=== PATIENT | female | born 1960 | race African-American/Black ===

== ENCOUNTER 2016-08-10 21:24 | Observation (INO) | payer SELFPAY ==
[2016-08-10] MEDS ORDERED: NS 1000 ML 1,000 ML ONE (21:44)
[2016-08-10] MEDS ORDERED: MORPHINE SULFATE INJ 2 MG ONE ×2 (21:47→22:14)
[2016-08-10] MEDS ORDERED: MORPHINE SULFATE INJ 2 MG IVP ONE ×3 (21:48→22:19)
[2016-08-10] MEDS ORDERED: ASPIRIN ONE (21:48)
[2016-08-10] MEDS ORDERED: ASPIRIN PO ONE (21:48)
--- NOTE | 2016-08-10 21:58 | DR.GENAD ---
HPI - Complaint/Symptoms Chief Complaint Doctors Comments: Patient complains of chest pain with tightness in center of her chest for the past 30 minutes. States she was cleaning her house initially then she walked to her friends house and back when the tightness in her chest begin. States the pain is 10 of 10. Patient complains of being hot but denies nausea, vomiting or SOB. States she is a patient of Dr. Perales and has not had any problems with her heart before. She denies any recent surgeries, strokes, ulcers or active bleeding. States she had marijuana about a week ago but has not had any cocaine. Chief Complaint:: CHEST TIGHTNESS/PAIN THAT JUST STARTED A FEW MINUTES AGO - Nurses notes reviewed Nurses Notes Review: Yes - Source History Provided: Patient - Mode of Arrival Mode of Arrival: Ambulatory - Timing Onset of Chief Complaint: 08/10/16 Came on: Suddenly - Duration Duration: Constant How lon Duration: Minutes - Location Location: xiphoid tightness - Severity Severity: Severe - Modifying Factors Worsens:: nothing Improves:: nothing PMH - PMH Past Medical History: Yes Past Medical History: Hypertension Past Surgical History: Yes Surgical History: Ortho Surgery - Family History History of Family Medical Conditions: Yes Family Medical History: Diabetes Mellitus, Heart Failure - Social History Do you use any recreational Drugs:: No - infectious screening In the last 2 months have you had wt loss of >10#?: NO Have you had fever, night sweats or hemotysis?: No Have you traveled outside the country in the last 6 months?: No Isolation: Standard ROS - Review of Systems Constitutional: No Symptoms Reported. negative: See HPI, Chills, Diaphoresis, Fever, Malaise, Weakness, Irritable, Fatigue, Loss of Appetite, Other Eyes: No Symptoms Reported ENTM: No Symptoms Reported Respiratoy: No Symptoms Reported. negative: See HPI, Productive Cough, Non- Productive Cough, Moist Cough, Dry Cough, Hacking Cough, Barking Cough, Brassy Cough, Orthopnea, Short of Breath, Stridor, Wheezing, Hemoptysis, Other Cardiovascular: Chest Pain. negative: No Symptoms Reported, See HPI, Edema, Palpitations, Syncope, Cyanosis, Skin Mottling, Other Gastrointestinal/Abdominal: No Symptoms Reported. negative: See HPI, Abdominal Pain, Constipation, Diarrhea, Nausea, Vomiting, Food Intolerance, Other Genitourinary: No Symptoms Reported. negative: See HPI, Discharge, Dysuria, Frequency, Hematuria, Pain, Bleeding, Other Neurological: No Symptoms Reported, Anxiety, Numbness (hands and fingers numbe) Musculoskeletal: No Symptoms Reported Integumentary: No Symptoms Reported. negative: See HPI, Change in Color, Change in Hair/Nails, Dryness, Lesions, Lumps, Rash, Itching, Wound, Bruises, Juandice, Other Hematologic/Lymphatic: No Symptoms Reported Endocrine: No Symptoms Reported Psychiatric: No Symptoms Reported, Anxiety PE - Vital Signs Vitals: Temperature 97.5 F Pulse Rate [Apical] 83 Pulse Rate 91 Respiratory Rate 22 Blood Pressure [Right Arm] 161/78 Blood Pressure 104/55 O2 Sat by Pulse Oximetry 100 - General Limitations: No Limitations General Appearance: Alert, In Distress (moderate) - Head Head Exam: Normal Inspection, Atraumatic, Normocephalic - Eyes Eye exam: Normal Appearance, PERRL, EOMI. negative: Scleral Icterus, Conjunctival Injection, Nystagmus, Miosis, Mydrasis, Periorbital Swelling, Periorbital Tenderness, Other - ENT ENT Exam: Normal Exam, Normal Oropharynx, Normal External Ear Exam, Mucous Membranes Moist, TM's Normal Bilaterally External Ear Exam: Normal External Inspection TM/Canal Exam: Bilateral Normal Nose Exam: Normal Nose Exam Mouth Exam: Normal Inspection Throat Exam: Normal Inspection - Neck Neck Exam: Normal Inspection, Full ROM, Trachea Midline - Chest Chest Inspection: Normal Inspection, Symmetric Chest Wall Rise - Respiratory Respiratory Exam: Normal Lung Sounds Bilat Respiratory Exam: Bilateral Clear to Auscultation - Cardiovascular Cardiovascular Exam: Regular Rate, Normal Rhythm, Normal Heart Sounds, Systolic Murmur - Abdominal Exam Abdominal Exam: Normal Inspection, Normal Bowel Sounds, Soft. negative: Distention, Tenderness, Guarding, Rebound, Rigidity, Dimnished Bowel Sounds, Hyperactive Bowel Sounds, Hypoactive Bowel Sounds, Organomegaly, Trauma, Incision, Ascites, Mass, Bruit, Pulsatile Mass, Hernia, Other Abdominal Tenderness: negative: RUQ, RLQ, LUQ, LLQ, Epigastrium, Suprapubic, Diffuse, Mild, Moderate, Severe, Other - Extremities Extremities Exam: Normal Inspection, Full ROM, Normal Capillary Refill. negative: Tenderness, Edema, Joint Swelling, Calf Tenderness, Other - Back Back Exam: Normal Inspection, Full ROM - Neurologic Neurological Exam: Alert, Oriented X3, CN II-XII Intact, Reflexes Normal. negative: Normal Gait (gait not tested) - Psychiatric Psychiatric Exam: Normal Affect, Normal Mood, Agitated, Anxious. negative: Depressed, Flat Affect, Manic, Homicidal Ideation, Suicidal Ideation, Other - Skin Skin Exam: Warm, Dry, Intact, Normal Color. negative: Rash, Cyanosis, Diaphoresis, Erythema, Pallor, Mottled, Other Course - Reevaluation 1st: Improved - Consultation Called: 22:50 Call Returned: 22:50 (DR. Palmer at [facility] states EKG not consistent with acute LA; recommend serial enzymes and transfer if elevated) Consultation Comments: [id number]: [facility] Called and the valet service attendant, Dr. Palmer called and the EKG was texted to his phone and he states that the EKG is not consistent with and acute Inferior LA and he would not act on that EKG. Recommend serial cardiac enzymes and to transfer if they are elevated. - Education/Counseling Education/Counseling: Patient, Family Educated On: Treatment, Diagnosis, Prognosis, Needs for Follow Up ROR - Labs Reviewed Laboratory Results Reviewed?: Yes (all labs and x-ray results reviewed and discussed with patient) Result Diagrams: 08/10/16 21:51 08/10/16 21:51 Laboratory: WBC 11.8 X10^3/uL (3.6-10.0) H 08/10/16 21:51 RBC 4.68 X10^6/uL (3.5-5.4) 08/10/16 21:51 Hgb 12.1 g/dL (12.0-16.0) 08/10/16 21:51 Hct 37.1 % (36.0-47.0) 08/10/16 21:51 MCV 79.2 fL (80.0-100.0) L 08/10/16 21:51 MCH 25.8 pg (27.0-34.0) L 08/10/16 21:51 MCHC 32.5 g/dL (33.0-35.0) L 08/10/16 21:51 RDW 14.1 % (11.6-16.5) 08/10/16 21:51 Plt Count 303 X10^3/uL (150.0-450.0) 08/10/16 21:51 Plt Count Comment Adequate (ADEQUATE) 08/10/16 21:51 MPV 7.5 fL (7.4-11.0) 08/10/16 21:51 Neut % 39.3 % (42.0-75.0) L 08/10/16 21:51 Lymph % 52.2 % (21.0-51.0) H 08/10/16 21:51 [place] % 7.1 % (0.0-13.0) 08/10/16 21:51 Eos % 1.1 % (0.9-2.9) 08/10/16 21:51 Baso % 0.3 % (0.2-1.0) 08/10/16 21:51 Neut # 4.6 x10^3/uL (2.2-4.8) 08/10/16 21:51 Lymph # 6.1 X10^3/uL (1.3-2.9) H 08/10/16 21:51 [place] # 0.8 x10^3/uL (0.3-0.8) 08/10/16 21:51 Eos # 0.1 x10^3/uL (0.0-0.2) 08/10/16 21:51 Baso # 0.0 X10^3/uL (0.0-0.1) 08/10/16 21:51 Absolute Nucleated RBC 0.0 /100WBC 08/10/16 21:51 Plt Morphology Comment Normal (NORMAL) 08/10/16 21:51 RBC Morphology Abnormal (NORMAL) A 08/10/16 21:51 Hypochromasia Slight A 08/10/16 21:51 INR Target Range - 08/10/16 21:51 INR 1.05 (0.8-1.3) 08/10/16 21:51 PTT 22.3 SECONDS (22.9-36.5) L 08/10/16 21:51 PTT Comment - 08/10/16 21:51 D-Dimer 450 ng/mL (0-400) H* 08/10/16 21:51 Sodium 142 mmol/L (136-145) 08/10/16 21:51 Corrected Sodium 143 mmol/L (136-145) 08/10/16 21:51 Potassium 2.5 mmol/L (3.5-5.1) L* 08/10/16 21:51 Chloride 102 mmol/L (98-107) 08/10/16 21:51 Carbon Dioxide 26.5 mmol/L (21-32) 08/10/16 21:51 BUN 18 mg/dL (7-18) 08/10/16 21:51 Creatinine 1.27 mg/dL (0.55-1.02) H 08/10/16 21:51 Est GFR (MDRD) Af Amer 56 (>60) L 08/10/16 21:51 Est GFR (MDRD) Non-Af 47 (>60) L 08/10/16 21:51 Glucose 147 mg/dL (65-99) H 08/10/16 21:51 Calcium 8.7 mg/dL (8.5-10.1) 08/10/16 21:51 Corrected Calcium TNP 08/10/16 21:51 Magnesium 1.7 mg/dL (1.7-2.9) 08/10/16 21:51 Total Bilirubin 0.20 mg/dL (0.2-1.0) 08/10/16 21:51 AST 22 Units/L (15-37) 08/10/16 21:51 ALT 26 Units/L (12-78) 08/10/16 21:51 Alkaline Phosphatase 76 Units/L (46-116) 08/10/16 21:51 Creatine Kinase 168 Units/L (26-192) 08/10/16 21:51 CK-MB (CK-2) 1.0 ng/mL (0-4.0) 08/10/16 21:51 CK/CKMB % Calc 0.6 % (<4) 08/10/16 21:51 Troponin I < 0.02 ng/mL (0-1.5) 08/10/16 21:51 Total Protein 7.4 g/dL (6.4-8.2) 08/10/16 21:51 Albumin 3.4 g/dL (3.4-5.0) 08/10/16 21:51 Globulin 4.0 g/dL (2.5-4.5) 08/10/16 21:51 Albumin/Globulin Ratio 0.9 Ratio (1.1-2.1) L 08/10/16 21:51 Specimen Type Catherized urine 08/10/16 22:39 Urine Color Yellow (YELLOW) 08/10/16 22:39 Urine Appearance Clear (CLEAR) 08/10/16 22:39 Urine pH 6.0 (5.0 - 8.0) 08/10/16 22:39 Ur Specific [place] 1.015 (1.000-1.030) 08/10/16 22:39 Urine Protein 1+ (NEGATIVE) 08/10/16 22:39 Urine Glucose (UA) Negative (NEGATIVE) 08/10/16 22:39 Urine Ketones Negative (NEGATIVE) 08/10/16 22:39 Urine Occult Blood 2+ (NEGATIVE) 08/10/16 22:39 Urine Nitrite Negative (NEGATIVE) 08/10/16 22:39 Urine Bilirubin Negative (NEGATIVE) 08/10/16 22:39 Urine Urobilinogen Normal (NORMAL) 08/10/16 22:39 Ur Leukocyte Esterase Negative (NEGATIVE) 08/10/16 22:39 Urine RBC 0-3 /HPF (NEGATIVE) 08/10/16 22:39 Urine WBC 0-2 /HPF (NEGATIVE) 08/10/16 22:39 Ur Squamous Epith Cells Rare /HPF (NEGATIVE) 08/10/16 22:39 Urine Bacteria Trace /HPF (NEGATIVE) 08/10/16 22:39 Urine Mucus Few /HPF (NEGATIVE) 08/10/16 22:39 Ur Culture Indicated? No/not indicated 08/10/16 22:39 Urine Opiates Screen Positive (NEG=<300) A 08/10/16 22:34 Urine Methadone Screen Negative (NEG=<300) 08/10/16 22:34 Ur Barbiturates Screen Negative (NEG=<200) 08/10/16 22:34 Ur Phencyclidine Scrn Negative (NEG=<25) 08/10/16 22:34 Ur Amphetamines Screen Negative (NEG=<1000) 08/10/16 22:34 U Benzodiazepines Scrn Negative (NEG=<200) 08/10/16 22:34 Urine Cocaine Screen Negative (NEG=<300) 08/10/16 22:34 U Marijuana (THC) Screen Positive (NEG=<50) A 08/10/16 22:34 - XRAY XRAY Interpreted by: Radiologist (CXR: No acute cardiopulmonary disease) - Diagnosis Discharge Problem: Chest pain, rule out acute myocardial infarction, Hypokalemia, Essential hypertension, multiple drug use Chronic kidney disease Qualifiers: Chronic kidney disease stage: stage 3 (moderate) Qualified Code(s): N18.3 - Chronic kidney disease, stage 3 (moderate) - Discharge Plan Disposition: ADMITTED INPATIENT Condition: Stable - Follow ups/Referrals Follow ups/Referrals: NFD,None [Primary Care Provider] - 3 days - Instructions
[2016-08-10] MEDS ORDERED: NS 1000 ML 1,000 ML IV SCH (22:00)
[2016-08-10 22:06] LABS: BASOPHILS % (AUTO) 0.3 % (0.2-1.0); EOSINOPHILS # (AUTO) 0.1 x10^3/uL (0.0-0.2); EOSINOPHILS % (AUTO) 1.1 % (0.9-2.9); HEMATOCRIT 37.1 % (36.0-47.0); HEMOGLOBIN 12.1 g/dL (12.0-16.0); LYMPHOCYTES # (AUTO) 6.1 X10^3/uL (1.3-2.9); LYMPHOCYTES % (AUTO) 52.2 % (21.0-51.0); MEAN CORPUSCULAR HEMOGLOBIN 25.8 pg (27.0-34.0); MEAN CORPUSCULAR HGB CONC 32.5 g/dL (33.0-35.0); MEAN CORPUSCULAR VOLUME 79.2 fL (80.0-100.0); MEAN PLATELET VOLUME 7.5 fL (7.4-11.0); MONOCYTES # (AUTO) 0.8 x10^3/uL (0.3-0.8); MONOCYTES % (AUTO) 7.1 % (0.0-13.0); NEUTROPHILS # (AUTO) 4.6 x10^3/uL (2.2-4.8); NEUTROPHILS % (AUTO) 39.3 % (42.0-75.0); PLATELET COUNT 303 X10^3/uL (150.0-450.0); RED BLOOD COUNT 4.68 X10^6/uL (3.5-5.4); RED CELL DISTRIBUTION WIDTH 14.1 % (11.6-16.5); WHITE BLOOD COUNT 11.8 X10^3/uL (3.6-10.0)
[2016-08-10] MEDS ORDERED: NS 1000 ML 1,000 ML IV ONE (22:07)
[2016-08-10 22:22] LABS: HYPOCHROMASIA SLIGHT; PLATELET MORPHOLOGY COMMENT NORMAL (NORMAL)
--- NOTE | 2016-08-10 22:30 | RAD ---
Chest, one view Indication: Chest pain. Comparison: 07/04/2015 Findings: The cardiac silhouette is unremarkable. The lungs are clear, without focal infiltrates, la rge effusion, or pneumothorax. The bony thorax is unremarkable. Impression: No acute cardiopulmonary disease. Reported By:
[2016-08-10 22:33] LABS: ALANINE AMINOTRANSFERASE 26 Units/L (12-78); ALBUMIN 3.4 g/dL (3.4-5.0); ALKALINE PHOSPHATASE 76 Units/L (46-116); ASPARTATE AMINO TRANSFERASE 22 Units/L (15-37); BLOOD UREA NITROGEN 18 mg/dL (7-18); CALCIUM 8.7 mg/dL (8.5-10.1); CARBON DIOXIDE 26.5 mmol/L (21-32); CHLORIDE 102 mmol/L (98-107); CKMB % 0.6 % (<4); COR NA(FOR HYPERGLY) 143 mmol/L (136-145); CREATINE KINASE 168 Units/L (26-192); CREATININE 1.27 mg/dL (0.55-1.02); GLUCOSE 147 mg/dL (65-99); MAGNESIUM 1.7 mg/dL (1.7-2.9); SODIUM 142 mmol/L (136-145); TOTAL PROTEIN 7.4 g/dL (6.4-8.2); TROPONIN I < 0.02 ng/mL (0-1.5); eGFR BLACK RACES 56 (>60); eGFR NON BLACK RACES 47 (>60)
[2016-08-10 22:39] LABS: D DIMER 450 ng/mL (0-400)
[2016-08-10] MEDS ORDERED: K-LYTE EFFERVESCENT ONE (22:51)
[2016-08-10 22:58] LABS: BILIRUBIN,URINE NEGATIVE (NEGATIVE); BLOOD/HEMOGLOBIN,URINE 2+ (NEGATIVE); GLUCOSE, URINE NEGATIVE (NEGATIVE); KETONES,URINE NEGATIVE (NEGATIVE); LEUKOCYTE ESTERASE ,URINE NEGATIVE (NEGATIVE); NITRITES,URINE NEGATIVE (NEGATIVE); PROTEIN,URINE 1+ (NEGATIVE); UROBILINOGEN,URINE NORMAL (NORMAL)
[2016-08-10] MEDS ORDERED: K-LYTE EFFERVESCENT PO SCH (23:00)
[2016-08-10 23:08] LABS: APPEARANCE,URINE CLEAR (CLEAR); BACTERIA,URINE TRACE /HPF (NEGATIVE); COLOR,URINE YELLOW (YELLOW); RBC,URINE 0-3 /HPF (NEGATIVE); SQUAMOUS EPITHELIAL CELL,UR RARE /HPF (NEGATIVE)
[2016-08-10 23:09] LABS: MUCUS,URINE FEW /HPF (NEGATIVE)
[2016-08-10] MEDS ORDERED: ZOFRAN INJ 4 MG VIAL ONE (23:47)
[2016-08-10] MEDS ORDERED: NITRO-BID OINT 2% Multi-Dose tube ONE (23:49)
[2016-08-10] MEDS ORDERED: ZOFRAN INJ 4 MG VIAL IVP ONE (23:52)
[2016-08-10] MEDS ORDERED: NITRO-BID OINT 2% Multi-Dose tube TD ONE (23:56)
[2016-08-11] MEDS ORDERED: ATIVAN TAB 1 MG PO PRN (00:03)
[2016-08-11] MEDS ORDERED: MORPHINE SULFATE INJ 2 MG IVP PRN (00:03)
[2016-08-11] MEDS ORDERED: NITROSTAT SL PRN (00:03)
[2016-08-11 01:43] VITALS: BMI 24.3
[2016-08-11] MEDS ORDERED: ZOFRAN INJ 4 MG VIAL IVP PRN (03:21)
[2016-08-11] MEDS ORDERED: LEVSIN/MAALOX/LIDOC VISC PO PRN (03:28)
[2016-08-11 05:16] LABS: CKMB % 8.5 % (<4)
[2016-08-11 05:19] LABS: CREATINE KINASE MB 46.8 ng/mL (0-4.0); TROPONIN I 3.56 ng/mL (0-1.5)
[2016-08-11] MEDS ORDERED: HEPARIN SODIUM IN D5W 25,000 UNITS/500 ML BAG IV PRN ×2 (06:40→06:46)
[2016-08-11] MEDS ORDERED: PLAVIX PO STA (06:40)
[2016-08-11] MEDS ORDERED: NITROGLYCERIN IV PREMIX 50 MG 50 MG/250 ML BAG IV PRN ×2 (06:41→06:45)
[2016-08-11 06:43] VITALS: BP 129/80
[2016-08-11] MEDS ORDERED: HEPARIN SODIUM INJ 5000 UNITS ONE (06:59)
[2016-08-11 07:06] LABS: CHOL/HDL RATIO 4.7 (0.0-5.0)
[2016-08-11] MEDS ORDERED: HEPARIN SODIUM INJ 5000 UNITS IVP ONE (07:10)
[2016-08-11] MEDS ORDERED: PROTONIX INJ 40 MG VIAL IVP SCH (09:00)
[2016-08-11] MEDS ORDERED: LOVENOX INJ 40 MG SYR SC SCH (09:00)
[2016-08-11] MEDS ORDERED: ASPIRIN PO SCH (09:00)
[2016-08-11] MEDS ORDERED: LOPRESSOR TAB 25 MG PO SCH (09:00)
== END 2016-08-11 07:55 | disposition short-term general hospital (02) ==
LOC: ER 21:24 → ICU 08-11
PROVIDERS: ADMIT Internal Medicine; ATTEND Internal Medicine
DX: I21.4 Non-ST elevation (NSTEMI) myocardial infarction (principal); R07.89 Other chest pain; D72.828 Other elevated white blood cell count; R79.1 Abnormal coagulation profile; E87.6 Hypokalemia; F12.90 Cannabis use, unspecified, uncomplicated; F11.90 Opioid use, unspecified, uncomplicated; R94.31 Abnormal electrocardiogram [ECG] [EKG]; R94.30 Abnormal result of cardiovascular function study, unspecified; I12.9 Hypertensive chronic kidney disease with stage 1 through stage 4 chronic kidney disease, or unspecified chronic kidney disease; N18.3 Chronic kidney disease, stage 3 (moderate)
CPT/HCPCS: 36415; 51702; 71010; 80053; 80061; 80307; 81001; 82550; 82553; 83735; 84132; 84484; 85025; 85378; 85610; 85730; 93005; 93010; 96365; 96367; 96374; 96375; 99284; A4216; A4222; G0378; G0434; J1644; J2270; J2405

== ENCOUNTER 2016-10-19 17:53 | Emergency (ER) | payer SELFPAY ==
[2016-10-19] MEDS ORDERED: SOLU-Medrol 125 MG VIAL IM ONE (19:19)
[2016-10-19] MEDS ORDERED: DEMEROL INJ IM ONE (19:20)
[2016-10-19] MEDS ORDERED: PHENERGAN INJ 25 MG IM ONE (19:20)
--- NOTE | 2016-10-19 19:26 | DR.GENAD ---
HPI - Complaint/Symptoms Chief Complaint Doctors Comments: Patient complains of low back pain for the past 24 hours. 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 state she had been having severe pain in her lower back but denies numbness, tingling or weakness. States the pain is 10 of 10 and is worst when she stand, walk or bend. States she is a patient of Dr. Quintanilla. She denies headache or dizziness. - Nurses notes reviewed Nurses Notes Review: Yes - Source History Provided: Patient - Mode of Arrival Mode of Arrival: Stretcher - Timing Came on: Suddenly - Duration Duration: Constant How lon Duration: Hours - Location Location: lower back - Severity Severity: Moderate, Severe - Modifying Factors Worsens:: movement, bending Improves:: nothing PMH - PMH Past Medical History: Hypertension Past Surgical History: Yes Surgical History: Ortho Surgery - Family History Family Medical History: Diabetes Mellitus, [place], Hypertension - Social History Do you use any recreational Drugs:: No ROS - Review of Systems Constitutional: No Symptoms Reported. negative: See HPI, Chills, Diaphoresis, Fever, Malaise, Weakness, Irritable, Fatigue, Loss of Appetite, Other Eyes: No Symptoms Reported. negative: See HPI, Eye Pain, Blurred Vision, Tearing, Discharge, Photophobia, Diplopia, Other ENTM: No Symptoms Reported Respiratoy: No Symptoms Reported. negative: See HPI, Productive Cough, Non- Productive Cough, Moist Cough, Dry Cough, Hacking Cough, Barking Cough, Brassy Cough, Orthopnea, Short of Breath, Stridor, Wheezing, Hemoptysis, Other Cardiovascular: No Symptoms Reported Gastrointestinal/Abdominal: No Symptoms Reported. negative: See HPI, Abdominal Pain, Constipation, Diarrhea, Nausea, Vomiting, Food Intolerance, Other Genitourinary: No Symptoms Reported. negative: See HPI, Discharge, Dysuria, Frequency, Hematuria, Pain, Bleeding, Other Neurological: No Symptoms Reported Musculoskeletal: No Symptoms Reported, Back Integumentary: No Symptoms Reported Hematologic/Lymphatic: No Symptoms Reported Endocrine: No Symptoms Reported Psychiatric: No Symptoms Reported PE - Vital Signs Vitals: Temperature 98.6 F Pulse Rate 65 Respiratory Rate 16 Blood Pressure [Left Calf] 129/80 Blood Pressure [Right Arm] 161/78 Blood Pressure 142/94 O2 Sat by Pulse Oximetry 98 - General Limitations: No Limitations General Appearance: Alert, In Distress (moderate) - Head Head Exam: Normal Inspection, Atraumatic, Normocephalic - Eyes Eye exam: Normal Appearance, PERRL, EOMI. negative: Scleral Icterus, Conjunctival Injection, Nystagmus, Miosis, Mydrasis, Periorbital Swelling, Periorbital Tenderness, Other - ENT ENT Exam: Normal Exam, Normal Oropharynx, Normal External Ear Exam, Mucous Membranes Moist, TM's Normal Bilaterally External Ear Exam: Normal External Inspection TM/Canal Exam: Bilateral Normal Nose Exam: Normal Nose Exam Mouth Exam: Normal Inspection Throat Exam: Normal Inspection - Neck Neck Exam: Normal Inspection, Full ROM, Trachea Midline. negative: Tenderness, Meningismus, Lymphadenopathy, Thyromegaly, Other - Chest Chest Inspection: Normal Inspection, Symmetric Chest Wall Rise - Respiratory Respiratory Exam: Normal Lung Sounds Bilat Respiratory Exam: Bilateral Clear to Auscultation - Cardiovascular Cardiovascular Exam: Regular Rate, Normal Rhythm, Normal Heart Sounds. negative : Bradycardia, Tachycardia, Irregular Rhythm, Systolic Murmur, Diastolic Murmur , Rubs, Gallop, Clicks, JVD, +S1, +S2, +S3, +S4, Other - Abdominal Exam Abdominal Exam: Normal Inspection, Normal Bowel Sounds, Soft Abdominal Tenderness: negative: RUQ, RLQ, LUQ, LLQ, Epigastrium, Suprapubic, Diffuse, Mild, Moderate, Severe, Other - Extremities Extremities Exam: Normal Inspection, Full ROM, Normal Capillary Refill. negative: Tenderness, Edema, Joint Swelling, Calf Tenderness, Other - Back Back Exam: Normal Inspection, Tenderness (lower back midline), Paraspinal Tenderness, (R) Straight Leg Raise (positive ), (L) Straight Leg Raise - Neurologic Neurological Exam: Alert, Oriented X3, CN II-XII Intact, Normal Gait, Reflexes Normal - Psychiatric Psychiatric Exam: Normal Affect, Normal Mood. negative: Depressed, Agitated, Anxious, Flat Affect, Manic, Homicidal Ideation, Suicidal Ideation, Other - Skin Skin Exam: Warm, Dry, Intact, Normal Color ROR - Labs Reviewed Laboratory Results Reviewed?: Yes (all labs and x-ray results reviewed and discussed with patient) Laboratory: Specimen Type Clean catch urine 10/19/16 19:28 Urine Color Yellow (YELLOW) 10/19/16 19:28 Urine Appearance Clear (CLEAR) 10/19/16 19:28 Urine pH 6.5 (5.0 - 8.0) 10/19/16 19:28 Ur Specific [place] 1.005 (1.000-1.030) 10/19/16 19:28 Urine Protein Negative (NEGATIVE) 10/19/16 19:28 Urine Glucose (UA) Negative (NEGATIVE) 10/19/16 19:28 Urine Ketones Negative (NEGATIVE) 10/19/16 19:28 Urine Occult Blood 2+ (NEGATIVE) 10/19/16 19:28 Urine Nitrite Negative (NEGATIVE) 10/19/16 19:28 Urine Bilirubin Negative (NEGATIVE) 10/19/16 19:28 Urine Urobilinogen Normal (NORMAL) 10/19/16 19:28 Ur Leukocyte Esterase 2+ (NEGATIVE) 10/19/16 19:28 Urine RBC 0 - 3 /HPF (NEGATIVE) 10/19/16 19:28 Urine WBC 0 - 4 /HPF (NEGATIVE) 10/19/16 19:28 Ur Squamous Epith Cells Few /HPF (NEGATIVE) 10/19/16 19:28 Amorphous Sediment Trace /HPF (NEGATIVE) 10/19/16 19:28 Urine Bacteria Trace /HPF (NEGATIVE) 10/19/16 19:28 Ur Culture Indicated? No/not indicated 10/19/16 19:28 - XRAY XRAY Interpreted by: Radiologist (CT lumbar: Mild to moderate degenerative lower lumbar spondylosis and moderat to severe facet joint DJD) - Diagnosis Discharge Problem: Lumbosacral radiculopathy at L4, Degenerative disc disease at L5-S1 level, Low back pain, Sciatica - Discharge Plan Disposition: 01 HOME, SELF-CARE Condition: Stable Prescriptions: Acetaminophen with Codeine [Tylenol with Codeine #3 Tablet] 1 tab PO Q4-6H PRN # 26 tab PRN Reason: Pain Cyclobenzaprine HCl [FLEXERIL 10 MG *] 10 mg PO BID #20 tab Methylprednisolone Dosepak 4Mg [MEDROL DOSEPAK (4 mg tab x 21)] 1 mary PO ONCE # 1 mary Naproxen [NAPROSYN 500 MG *] 500 mg PO BID PRN #10 tab PRN Reason: Pain/Inflammation - Follow ups/Referrals Follow ups/Referrals: TYLER PIRES [Primary Care Provider] - 3 days BENJAMÍN PINEDA [STAFF PHYSICIAN] - 3 days - Instructions Instructions: Back Pain, Adult, [id number], Spondylolysis With Rehab- [facility], Sciatica, [id number], Herniated Disk, Degenerative Disk Disease, Osteoarthritis
[2016-10-19 19:29] VITALS: BMI 24.3
[2016-10-19] MEDS ORDERED: PHENERGAN INJ 25 MG ONE (19:34)
[2016-10-19] MEDS ORDERED: DEMEROL INJ ONE (19:34)
[2016-10-19] MEDS ORDERED: SOLU-Medrol 125 MG VIAL ONE (19:34)
--- NOTE | 2016-10-19 19:47 | CT ---
HISTORY: Low back pain. Study: CT lumbar spine without contrast Comparison: none. Technique: Multiple axial images of the lumbar spine were obtained from the thoracolumbar junction to the sacrum without the administration of IV contrast. Sagittal and coronal reformats were perfor med and reviewed. Findings: Alignment of the lumbar spine is within normal limits. No evidence for acute fracture or subluxatio n can be identified. No central canal compromise by bony osteophyte formation or soft tissue compon ents can be identified. There is mild to moderate, lower, lumbar spondylosis and moderate to severe facet joint DJD observed which creates mild foraminal spinal canal narrowing at these levels. Typing Bookkeeper ior disc bulges/protrusions are also seen at L4-5 and L5-S1. No pars defect is seen. There is no vis ible subluxation or posterior element abnormality. No lytic bony lesions or endplate erosive changes are seen. The surrounding paraspinous and retroperitoneal soft tissues are unremarkable in their no ncontrasted appearance. IMPRESSION: 1. Negative exam of the lumbar spine for acute fracture or subluxation. 2. Mild to moderate degenerative, lower, lumbar spondylosis and moderate to severe facet joint DJD/o steoarthritis observed which creates mild foraminal spinal canal narrowing at these levels. Posterio r disc bulges/protrusions are also seen at L4-5 and L5-S1. This can be followed up with outpatient l umbar spine MR imaging when the patient is clinically stable. Reported By:
[2016-10-19 20:00] LABS: BILIRUBIN,URINE NEGATIVE (NEGATIVE); BLOOD/HEMOGLOBIN,URINE 2+ (NEGATIVE); GLUCOSE, URINE NEGATIVE (NEGATIVE); KETONES,URINE NEGATIVE (NEGATIVE); LEUKOCYTE ESTERASE ,URINE 2+ (NEGATIVE); NITRITES,URINE NEGATIVE (NEGATIVE); PH,URINE 6.5 (5.0 - 8.0); PROTEIN,URINE NEGATIVE (NEGATIVE); UROBILINOGEN,URINE NORMAL (NORMAL)
[2016-10-19 20:12] LABS: APPEARANCE,URINE CLEAR (CLEAR); COLOR,URINE YELLOW (YELLOW)
[2016-10-19 20:19] LABS: AMORPHOUS SEDIMENT,UR TRACE /HPF (NEGATIVE); BACTERIA,URINE TRACE /HPF (NEGATIVE); RBC,URINE 0 - 3 /HPF (NEGATIVE); SQUAMOUS EPITHELIAL CELL,UR FEW /HPF (NEGATIVE)
[2016-10-19 22:16] VITALS: BP 164/96
== END 2016-10-19 22:10 | disposition home or self-care (01) ==
LOC: ER 17:53
DX: M54.16 Radiculopathy, lumbar region (principal); M51.36 Other intervertebral disc degeneration, lumbar region; M54.30 Sciatica, unspecified side; M54.5 Low back pain; M43.06 Spondylolysis, lumbar region
CPT/HCPCS: 72131; 81001; 96372; 99283; J2175; J2550; J2930

== ENCOUNTER → 2016-12-03 | Outpatient (CLI) | payer OTHER ==
--- NOTE | 2016-12-04 18:13 | MG ---
Examination: Bilateral screening mammogram. Clinical history: Routine screening. Technique: Digital CC and MLO views of both breasts were obtained. Computer aided detection analysis was performed and used during the interpretation. Comparison: 05/10/2015. Findings: The breasts are composed of scattered fibroglandular densities. Benign-appearing calcifications are n oted in the right breast. No suspicious mass, area of architectural distortion or suspicious cluster of microcalcifications is noted. Impression: 1. No mammographic evidence of malignancy. BI-RADS category 2-benign findings. Recommend routine annual screening mammogram. Diagnostic CAD was utilized and reviewed. * 0 (ZERO) - ASSESSMENT INCOMPLETE; ADDITIONAL IMAGING IS NEEDED. * 0C - ASSESSMENT INCOMPLETE, NEEDS ADDITIONAL IMAGING EVALUATION AND/OR PRIOR MAMMOGRAMS FOR COMPARI SON. * 1/1 (ONE) - NEGATIVE. * 2/II (TWO) - BENIGN FINDINGS. * 3/III (THREE) - PROBABLY BENIGN FINDING; SHORT INTERVAL FOLLOW-UP SUGGESTED. * 4/IV (FOUR) - SUSPICIOUS ABNORMALITY; BIOPSY SHOULD BE CONSIDERED. * 5/V - HIGHLY SUSPICIOUS OF MALIGNANCY; BIOPSY SHOULD BE PERFORMED. * 6/ - KNOWN BIOPSY PROVEN MALIGNANCY-APPROPRIATE ACTION SHOULD BE TAKEN. A NEGATIVE X-RAY REPORT SHOULD NOT DELAY BIOPSY IF A DOMINANT OR CLINICALLY SUSPICIOUS MASS IS PRESENT; 4 TO 8 PERCENT OF CANCERS ARE NOT IDENTIFIED BY X-RAY. A NEGATIVE REPORT MAY REINFORCE THE CLINICAL IMPRESSION. ADENOSIS AND DENSE BREASTS MAY OBSCURE AN UNDERLYING NEOPLASM. Reported By:
== END ==
LOC: RAD 09:24
PROVIDERS: ATTEND Internal Medicine
DX: Z12.31 Encounter for screening mammogram for malignant neoplasm of breast (principal)
CPT/HCPCS: 77067

== ENCOUNTER 2017-04-27 21:51 | Emergency (ER) | payer OTHER ==
[2017-04-27 22:07] VITALS: BMI 24.6
[2017-04-27] MEDS ORDERED: NITROSTAT SL ONE (22:09)
[2017-04-27] MEDS ORDERED: ASPIRIN 81 MG CHEWTAB ONE (22:09)
[2017-04-27] MEDS ORDERED: NITROSTAT SL PRN (22:09)
[2017-04-27] MEDS ORDERED: ASPIRIN 81 MG CHEWTAB PO ONE (22:10)
--- NOTE | 2017-04-27 22:11 | DR.CP ---
HPI - Time Seen Time seen: 10:00 - PCP Primary Care Physician: REFUGIO - Complaint Chief Complaint Doctor Comments: I have read chief complaint and agree with statement. Chief Complaint:: LEFT SIDED CHEST TIGHTNESS LESS THAN 1 HOUR, LITTLE NAUSEA. DENIES VOMITING, DENIES SHORTNESS OF BREATH, DENIES CHEST PAIN. CARDIAC HISTORY IN AUGUST 2016, TIMES 3 STENTS. Self Treatment fo Chief Complaint: ASA 81MG PO AT HOME TODAY - Source History Provided: Patient, EMS - Mode of Arrival Mode of Arrival: EMS - Timing Onset of Chief Complaint: 04/27/17 - Associated Signs and Symptoms Associated Signs and Symptoms: Nausea/Vomiting PMH - PMH Past Medical History: Yes Past Medical History: Coronary Artery Disease, Hypertension Past Surgical History: Yes Surgical History: Angioplasty/Stents, Ortho Surgery - Family History History of Family Medical Conditions: Yes Family Medical History: Diabetes Mellitus, [place], Hypertension - Social History Does patient currently use any type of tobacco product: No Have you used tobacco products in the last 12 months: No Type of Tobacco Use: None Does any household member use tobacco: No Alcohol Use: None Do you use any recreational Drugs:: No Lives With: Family Lives Where: Home - infectious screening Have you traveled outside the country in the last 6 months?: No Isolation: Standard ROS - Review of Systems Constitutional: No Symptoms Reported Eyes: No Symptoms Reported ENTM: No Symptoms Reported Respiratoy: No Symptoms Reported Cardiovascular: No Symptoms Reported Gastrointestinal/Abdominal: No Symptoms Reported Genitourinary: No Symptoms Reported Neurological: No Symptoms Reported Musculoskeletal: No Symptoms Reported Integumentary: No Symptoms Reported Hematologic/Lymphatic: No Symptoms Reported Endocrine: No Symptoms Reported Psychiatric: No Symptoms Reported All Other Systems: Reviewed and Negative PE - Vitals Vitals: Temperature 99.8 F Pulse Rate [Apical] 57 Pulse Rate 57 Respiratory Rate 21 Blood Pressure [Left Arm] 130/96 Blood Pressure [Left Calf] 129/80 Blood Pressure [Right Arm] 161/78 Blood Pressure 173/94 O2 Sat by Pulse Oximetry 98 - General General Appearance: Alert, In No Apparent Distress - Head Head Exam: Normal Inspection, Atraumatic - Eyes Eye exam: Normal Appearance, PERRL, EOMI - ENT ENT Exam: Normal Exam - Chest Chest Inspection: Normal Inspection, Symmetric Chest Wall Rise - Respiratory Respiratory Exam: Normal Lung Sounds Bilat Respiratory Exam: Bilateral Clear to Auscultation - Cardiovascular Cardiovascular Exam: Regular Rate, Normal Rhythm Pulse: Normal Edema: Normal - Abdominal Exam Abdominal Exam: Normal Inspection Abdominal Tenderness: negative: RUQ, RLQ, LUQ, LLQ, Epigastrium, Suprapubic, Diffuse, Mild, Moderate, Severe, Other - Extremities Extremities Exam: Normal Inspection, Full ROM - Back Back Exam: Normal Inspection, Full ROM - Neurologic Neurological Exam: Alert, Oriented X3, CN II-XII Intact - Psychiatric Psychiatric Exam: Normal Affect - Skin Skin Exam: Warm, Dry, Intact Course - Reevaluation 1st: Improved ROR - Labs Reviewed Laboratory Results Reviewed?: Yes (potassium low) Result Diagrams: 04/27/17 22:18 04/27/17 22:18 Laboratory: WBC 5.3 X10^3/uL (3.6-10.0) 04/27/17:18 RBC 4.48 X10^6/uL (3.5-5.4) 04/27/17 22:18 Hgb 12.3 g/dL (12.0-16.0) 04/27/17:18 Hct 36.1 % (36.0-47.0) 04/27/17 22:18 MCV 80.7 fL (80.0-100.0) 04/27/17:18 MCH 27.4 pg (27.0-34.0) 04/27/17:18 MCHC 33.9 g/dL (33.0-35.0) 04/27/17:18 RDW 14.5 % (11.6-16.5) 04/27/17:18 Plt Count 248 X10^3/uL (150.0-450.0) 04/27/17:18 MPV 7.2 fL (7.4-11.0) L 04/27/17:18 Neut % 46.8 % (42.0-75.0) 04/27/17:18 Lymph % 42.0 % (21.0-51.0) 04/27/17:18 [place] % 7.6 % (0.0-13.0) 04/27/17 22:18 Eos % 2.8 % (0.9-2.9) 04/27/17:18 Baso % 0.8 % (0.2-1.0) 04/27/17 22:18 Neut # 2.5 x10^3/uL (2.2-4.8) 04/27/17 22:18 Lymph # 2.2 X10^3/uL (1.3-2.9) 04/27/17 22:18 [place] # 0.4 x10^3/uL (0.3-0.8) 04/27/17 22:18 Eos # 0.1 x10^3/uL (0.0-0.2) 04/27/17:18 Baso # 0.0 X10^3/uL (0.0-0.1) 04/27/17 22:18 Absolute Nucleated RBC 0.1 /100WBC 04/27/17:18 INR Target Range - 04/27/17: INR 1.11 (0.8-1.3) 04/27/17:18 PTT 26.3 SECONDS (22.9-36.5) 04/27/17: PTT Comment - 04/27/17:18 Sodium 139 mmol/L (136-145) 04/27/17 22:18 Corrected Sodium 141 mmol/L (136-145) 04/27/17 22:18 Potassium 3.1 mmol/L (3.5-5.1) L 04/27/17:18 Chloride 100 mmol/L (98-107) 04/27/17:18 Carbon Dioxide 31.0 mmol/L (21-32) 04/27/17 22:18 BUN 17 mg/dL (7-18) 04/27/17:18 Creatinine 1.06 mg/dL (0.55-1.02) H 04/27/17 22:18 Est GFR (MDRD) Af Amer > 60 (>60) 04/27/17 22:18 Est GFR (MDRD) Non-Af 57 (>60) L 04/27/17:18 Glucose 187 mg/dL (65-99) H 04/27/17 22:18 Calcium 8.7 mg/dL (8.5-10.1) 04/27/17 22:18 Corrected Calcium TNP 04/27/17:18 Magnesium 1.8 mg/dL (1.7-2.9) 04/27/17 22:18 Total Bilirubin 0.20 mg/dL (0.2-1.0) 04/27/17 22:18 AST 24 Units/L (15-37) 04/27/17 22:18 ALT 31 Units/L (12-78) 04/27/17 22:18 Alkaline Phosphatase 71 Units/L (46-116) 04/27/17 22:18 Creatine Kinase 158 Units/L (26-192) 04/27/17 22:18 CK-MB (CK-2) 1.3 ng/mL (0-4.0) 04/27/17 22:18 CK/CKMB % Calc 0.8 % (<4) 04/27/17:18 Troponin I < 0.02 ng/mL (0-1.5) 04/27/17 22:18 Total Protein 7.3 g/dL (6.4-8.2) 04/27/17 22:18 Albumin 3.4 g/dL (3.4-5.0) 04/27/17:18 Globulin 3.9 g/dL (2.5-4.5) 04/27/17 22:18 Albumin/Globulin Ratio 0.9 Ratio (1.1-2.1) L 04/27/17 22:18 - XRAY XRAY Interpreted by: Radiologist (Chest: No acute cardiopulmonary disease) - Diagnosis Discharge Problem: Chest tightness, Hypokalemia - Discharge Plan Condition: Stable - Follow ups/Referrals Follow ups/Referrals: Solitario HUFF [Primary Care Provider] - 3 days - Instructions
[2017-04-27 22:28] LABS: BASOPHILS % (AUTO) 0.8 % (0.2-1.0); EOSINOPHILS # (AUTO) 0.1 x10^3/uL (0.0-0.2); EOSINOPHILS % (AUTO) 2.8 % (0.9-2.9); HEMATOCRIT 36.1 % (36.0-47.0); HEMOGLOBIN 12.3 g/dL (12.0-16.0); LYMPHOCYTES # (AUTO) 2.2 X10^3/uL (1.3-2.9); MEAN CORPUSCULAR HEMOGLOBIN 27.4 pg (27.0-34.0); MEAN CORPUSCULAR HGB CONC 33.9 g/dL (33.0-35.0); MEAN CORPUSCULAR VOLUME 80.7 fL (80.0-100.0); MEAN PLATELET VOLUME 7.2 fL (7.4-11.0); MONOCYTES # (AUTO) 0.4 x10^3/uL (0.3-0.8); MONOCYTES % (AUTO) 7.6 % (0.0-13.0); NEUTROPHILS # (AUTO) 2.5 x10^3/uL (2.2-4.8); NEUTROPHILS % (AUTO) 46.8 % (42.0-75.0); PLATELET COUNT 248 X10^3/uL (150.0-450.0); RED BLOOD COUNT 4.48 X10^6/uL (3.5-5.4); RED CELL DISTRIBUTION WIDTH 14.5 % (11.6-16.5); WHITE BLOOD COUNT 5.3 X10^3/uL (3.6-10.0)
[2017-04-27 22:37] LABS: BLOOD UREA NITROGEN 17 mg/dL (7-18); CALCIUM 8.7 mg/dL (8.5-10.1); CHLORIDE 100 mmol/L (98-107); COR NA(FOR HYPERGLY) 141 mmol/L (136-145); CREATININE 1.06 mg/dL (0.55-1.02); SODIUM 139 mmol/L (136-145); eGFR BLACK RACES > 60 (>60); eGFR NON BLACK RACES 57 (>60)
--- NOTE | 2017-04-27 22:37 | RAD ---
HISTORY: 56-year-old female with left-sided chest pain. Study: Frontal view of the chest. Comparison: Chest radiographs 08/10/2016 Findings: The trachea is midline. The cardiac silhouette is stably enlarged. The lungs are clear without foca l consolidation, effusion or pneumothorax. Soft tissues are unremarkable. Osseous structures are unr emarkable. IMPRESSION: 1. No acute cardiopulmonary disease. Reported By:
[2017-04-27 22:43] LABS: ALANINE AMINOTRANSFERASE 31 Units/L (12-78); ALBUMIN 3.4 g/dL (3.4-5.0); ALKALINE PHOSPHATASE 71 Units/L (46-116); ASPARTATE AMINO TRANSFERASE 24 Units/L (15-37); MAGNESIUM 1.8 mg/dL (1.7-2.9); TOTAL PROTEIN 7.3 g/dL (6.4-8.2)
[2017-04-27] MEDS ORDERED: K-LYTE EFFERVESCENT PO ONE (22:51)
[2017-04-27] MEDS ORDERED: K-LYTE EFFERVESCENT ONE (22:52)
[2017-04-27 22:54] LABS: CKMB % 0.8 % (<4); CREATINE KINASE 158 Units/L (26-192); CREATINE KINASE MB 1.3 ng/mL (0-4.0); TROPONIN I < 0.02 ng/mL (0-1.5)
[2017-04-28 00:40] VITALS: BP 140/66
== END 2017-04-28 00:44 | disposition home or self-care (01) ==
LOC: ER 21:51
DX: R07.89 Other chest pain (principal); E87.6 Hypokalemia
CPT/HCPCS: 36415; 71045; 80053; 82550; 82553; 83735; 84484; 85025; 85610; 85730; 93005; 93010; 93041; 96365; 99283; A4216

== ENCOUNTER 2019-08-01 18:00 | Inpatient (IN) ==
--- NOTE | 2019-08-01 18:40 | DR.CP ---
HPI Time Seen Time Seen by Provider: 08/01/19 18:40 PCP Primary Care Physician: JANETT HPI Comment HPI Comment: PATIENT IS 58YR OLD FEMALE IN ER WITH FEVER, CHEST PAIN AND CHILLS TIMES 2 DAYS. PAIN IS SHARP, 10/10 AND RADIATED TO THE BACK. PAIN ASSOCIATED WITH WEAKNESS AND SOB. COUGHING IS NON PRODUCTIVE. PATIENT HAVE HISTORY OF CAD, HTN AND ARTHRTIS. DENIES TRAUMA. PATIENT TOOK HER PAIN MEDICATION AT HOME AND IT DID NOT HELP PAIN. PATIENT IS A NON SMOKER. Complaint Chief Complaint Doctor Comments: RIGHT SIDED CHEST PAIN WITH CHILLS AND FEVER SINCE FRIDAY. Chief Complaint:: PT. C/O RIGHT SIDED CHEST PAIN AND CHILLS. ONSET OF FRIDAY. COVID-19 Coronavirus risk:travel/contact w/high risk person: No Has patient experienced Coronavirus symptoms: No Reviewed Nurses Notes Review: Yes Source History Provided: Patient and EMS Mode of Arrival Mode of Arrival: EMS Timing Onset of Chief Complaint: 08/06/19 Came on: Suddenly Pain: Present Now Duration Duration: Constant Duration: Days Location Location of Chest Pain: Right and Chest Chest Pain Radiation Location: Back Context Onset: At rest Cardiac Risk Factors: Hyperlipidemia and HTN PE Risk Factors: None History of: Angioplasty and Aspirin in last 24 hours PMH PMH Past Medical History: Yes Past Medical History: Coronary Artery Disease and Hypertension Past Surgical History: Yes Surgical History: Angioplasty/Stents and Ortho Surgery Family History History of Family Medical Conditions: Yes Family Medical History: Diabetes Mellitus, [place] and Hypertension Social History Does patient currently use any type of tobacco product: No Have you used tobacco products in the last 12 months: No Type of Tobacco Use: None Does any household member use tobacco: No Alcohol Use: None Do you use any recreational Drugs:: No Lives With: Family Lives Where: Home Travel Risk Coronavirus risk:travel/contact w/high risk person: No Has patient experienced Coronavirus symptoms: No Infectious screening In the last 2 months have you had wt loss of >10#?: NO Have you had fever, night sweats or hemotysis?: No Have you traveled outside the country in the last 6 months?: No Isolation: Droplet ROS Review of Systems Constitutional: See HPI, Fever, Weakness and Fatigue Eyes: No Symptoms Reported, See HPI, Blurred Vision and Diplopia ENTM: See HPI and Nose Congestion; negative Ear Pain, Nose Discharge and Throat Pain Respiratoy: See HPI, Productive Cough and Short of Breath; negative Wheezing Cardiovascular: See HPI and Chest Pain; negative Edema and Palpitations Gastrointestinal/Abdominal: No Symptoms Reported and See HPI; negative Abdominal Pain, Nausea, Vomiting and Food Intolerance Genitourinary: No Symptoms Reported and See HPI; negative Dysuria, Frequency and Hematuria Neurological: See HPI, Headache and Weakness; negative Dizziness Musculoskeletal: See HPI, Back Pain and Muscle Pain Integumentary: No Symptoms Reported and See HPI; negative Change in Color Hematologic/Lymphatic: No Symptoms Reported and See HPI; negative Easy Bruising and Swollen Glands Endocrine: No Symptoms Reported and See HPI; negative Increased Thirst and Increased Urine Psychiatric: No Symptoms Reported and See HPI All Other Systems: Reviewed and Negative PE Vitals Vitals: Temperature 99.7 F Pulse Rate 81 Respiratory Rate 24 Blood Pressure [Left Arm] 140/66 Blood Pressure [Left Calf] 129/80 Blood Pressure [Right Arm] 161/78 Blood Pressure 120/89 O2 Sat by Pulse Oximetry 96 General Limitations: No Limitations General Appearance: Alert and In Distress Head Head Exam: Normal Inspection and Atraumatic Eyes Eye exam: Normal Appearance, PERRL and EOMI; negative Scleral Icterus and Conjunctival Injection ENT ENT Exam: Normal Exam Chest Chest Inspection: Normal Inspection and Symmetric Chest Wall Rise; negative Tenderness Respiratory Respiratory Exam: Normal Lung Sounds Bilat, Accessory Muscle Use, Chest Wall Tenderness and Respiratory Distress Respiratory Exam: Bilateral: Wheezing and Bilateral: Rhonchi and Lower: Wheezing and Lower: Rhonchi Cardiovascular Cardiovascular Exam: Regular Rate, Normal Rhythm and Normal Heart Sounds; negative Systolic Murmur and Diastolic Murmur Pulse: Normal and Radial Edema: Normal Abdominal Exam Abdominal Exam: Normal Inspection, Normal Bowel Sounds and Soft; negative Tenderness Extremities Extremities Exam: Normal Inspection and Normal Capillary Refill; negative Tenderness, Edema and Calf Tenderness Back Back Exam: Normal Inspection and Paraspinal Tenderness; negative (R) CVA Tenderness and (L) CVA Tenderness Neurologic Neurological Exam: Alert, Oriented X3 and CN II-XII Intact; negative Motor Sensory Deficit Psychiatric Psychiatric Exam: Normal Mood Skin Skin Exam: Dry MDM Differential Diagnosis Differential Diagnosis: Angina, Esophageal Reflux/Spasm, Myocardial Infarction and Pancreatitis COURSE Treatment Treatment: SEE ORDERS. ROCEPHIN 1GM IVPB, MORPHIN 4MG IV AND ZOFRX IV Consultation Consultation Comments: DISCUSSED PATIENT WITH DR. GUAMAN. HE WILL ADMIT PATIENT. Education/Counseling Education/Counseling: Patient Educated On: Diagnosis ROR Labs Reviewed Laboratory Results Reviewed?: Yes Result Diagrams: 08/01/19 18:44 08/01/19 18:44 Laboratory: WBC 11.4 X10^3/uL (3.6-10.0) H 08/01/19 18:44 RBC 3.97 X10^6/uL (3.5-5.4) 08/01/19 18:44 Hgb 12.3 g/dL (12.0-16.0) 08/01/19 18:44 Hct 35.6 % (36.0-47.0) L 08/01/19 18:44 MCV 89.5 fL (80.0-100.0) 08/01/19 18:44 MCH 31.0 pg (27.0-34.0) 08/01/19 18:44 MCHC 34.7 g/dL (33.0-35.0) 08/01/19 18:44 RDW 13.4 % (11.6-16.5) 08/01/19 18:44 Plt Count 293 X10^3/uL (150.0-450.0) 08/01/19 18:44 MPV 8.3 fL (7.4-11.0) 08/01/19 18:44 Neut % (Auto) 78.0 % (42.0-75.0) H 08/01/19 18:44 Lymph % (Auto) 8.1 % (21.0-51.0) L 08/01/19 18:44 [place] % (Auto) 13.1 % (0.0-13.0) H 08/01/19 18:44 Eos % (Auto) 0.4 % (0.9-2.9) L 08/01/19 18:44 Baso % (Auto) 0.4 % (0.2-1.0) 08/01/19 18:44 Neut # (Auto) 8.9 x10^3/uL (2.2-4.8) H 08/01/19 18:44 Lymph # (Auto) 0.9 X10^3/uL (1.3-2.9) L 08/01/19 18:44 [place] # (Auto) 1.5 x10^3/uL (0.3-0.8) H 08/01/19 18:44 Eos # (Auto) 0.0 x10^3/uL (0.0-0.2) 08/01/19 18:44 Baso # (Auto) 0.1 X10^3/uL (0.0-0.1) 08/01/19 18:44 Absolute Nucleated RBC 0.0 /100WBC 08/01/19 18:44 PT 15.1 SECONDS (11.8-14.3) 08/01/19 18:44 INR Target Range - 08/01/19 18:44 INR 1.23 (0.8-1.3) 08/01/19 18:44 APTT 29.3 SECONDS (22.9-36.5) 08/01/19 18:44 PTT Comment - 08/01/19 18:44 Sample Site Lr 08/01/19 18:17 ABG pH 7.550 (7.35-7.45) H 08/01/19 18:17 ABG pCO2 33.0 mmHg (35.0-45.0) L 08/01/19 18:17 ABG pO2 55.0 mmHg (80.0-100.0) L 08/01/19 18:17 ABG HCO3 28.9 mmol/L (22-26) H 08/01/19 18:17 ABG O2 Saturation 92.0 % (90-100) 08/01/19 18:17 ABG Base Excess 6.5 mmol/L (-2.0-2.0) H 08/01/19 18:17 Jason Test Pos 08/01/19 18:17 A-a Gradient 103.0 mmHg 08/01/19 18:17 FiO2 28.0 08/01/19 18:17 Blood Gas Comments Shanice well ej 08/01/19 18:17 Sodium 141 mmol/L (136-145) 08/01/19 18:44 Corrected Sodium 142 mmol/L (136-145) 08/01/19 18:44 Potassium 3.2 mmol/L (3.5-5.1) L 08/01/19 18:44 Chloride 102 mmol/L (98-107) 08/01/19 18:44 Carbon Dioxide 29.0 mmol/L (21-32) 08/01/19 18:44 BUN 10 mg/dL (7-18) 08/01/19 18:44 Creatinine 0.82 mg/dL (0.55-1.02) 08/01/19 18:44 Est GFR (MDRD) Af Amer > 60 (>60) 08/01/19 18:44 Est GFR (MDRD) Non-Af > 60 (>60) 08/01/19 18:44 Glucose 134 mg/dL (65-99) H 08/01/19 18:44 Calcium 8.9 mg/dL (8.5-10.1) 08/01/19 18:44 Corrected Calcium 10.0 mg/dL (8.5-10.1) 08/01/19 18:44 Magnesium 1.6 mg/dL (1.7-2.9) L 08/01/19 18:44 Total Bilirubin 1.80 mg/dL (0.2-1.0) H 08/01/19 18:44 AST 23 Units/L (15-37) 08/01/19 18:44 ALT 27 Units/L (12-78) 08/01/19 18:44 Alkaline Phosphatase 59 Units/L (46-116) 08/01/19 18:44 Creatine Kinase 41 Units/L (26-192) 08/01/19 18:44 CK-MB (CK-2) < 1.0 ng/mL (0-4.0) 08/01/19 18:44 CK/CKMB % Calc 2.4 % (<4) 08/01/19 18:44 Troponin I < 0.02 ng/mL (0-1.5) 08/01/19 18:44 Total Protein 8.0 g/dL (6.4-8.2) 08/01/19 18:44 Albumin 2.6 g/dL (3.4-5.0) L 08/01/19 18:44 Globulin 5.4 g/dL (2.5-4.5) H 08/01/19 18:44 Albumin/Globulin Ratio 0.5 Ratio (1.1-2.1) L 08/01/19 18:44 RSV Nasal Swab Negative (NEGATIVE) 08/01/19 18:21 Influenza Type A Ag Negative-presumptive (NEGATIVE) 08/01/19 18:21 Influenza Type B Ag Negative-presumptive (NEGATIVE) 08/01/19 18:21 SARS-CoV-2 (PCR) Negative (NEGATIVE) 08/01/19 20:30 S. pyogenes (TEM-PCR) Not detected (NOT DETECT) 08/01/19 18:21 XRAY XRAY Interpreted by: Radiologist (REPORT NOTED AND DISCUSSED WITH PATIENT.) and Self (PNEUMONIA NOTED IN RADIOOGIST REPORT.) EKG Rate: 90 [place]: Normal Rhythm: NSR and PVCs Block: RBBB ST: Nonsp Opioid Opioid Risk Tool Age (Johnnie box if 16-45): No History of Preadolescent Sexual Abuse: No Total: 0 Total Score Risk Category: Low Risk Copyright: Villalobos LR predicting aberrant behaviors Diagnosis Discharge Problem: Hypokalemia, Hypoxia Pneumonia Qualifiers: Pneumonia type: due to unspecified organism Laterality: bilateral Lung location: lower lobe of lung Qualified Code(s): J18.9 - Pneumonia, unspecified organism Chest pain Qualifiers: Chest pain type: intercostal pain Qualified Code(s): R07.82 - Intercostal pain Instructions Forms: Excuse From Work Precautions for COVID19 Patient Portal Social Distancing
[2019-08-01 18:42] LABS: ABG BASE EXCESS 6.5 mmol/L (-2.0-2.0); ABG HCO3 28.9 mmol/L (22-26)
[2019-08-01 18:43] LABS: ABG ALLEN TEST POS
--- NOTE | 2019-08-01 18:47 | RAD ---
HISTORYRight-sided chest pain chills.STUDYCHEST, 1 VIEWCOMPARISONNone.FINDINGSThe trachea is midline. The cardiac silhouette is unremarkable. There are low lung volumes. There appear to be small infiltrates in the lower lobes bilaterally. There is no evidence of significant effusion or pneumothorax. The bony thorax is unremarkable.IMPRESSION1. Findings concerning for infiltrates in both lower lobes. Clinical correlation for bilateral lower lobe pneumonia is recommended.Electronically signed by: BHASKAR SCALES (August 01, 2019 18:46:20)
[2019-08-01 18:52] LABS: RSV AG DETECTION NEGATIVE (NEGATIVE)
[2019-08-01 18:57] LABS: BASOPHILS # (AUTO) 0.1 X10^3/uL (0.0-0.1); BASOPHILS % (AUTO) 0.4 % (0.2-1.0); EOSINOPHILS % (AUTO) 0.4 % (0.9-2.9); HEMATOCRIT 35.6 % (36.0-47.0); HEMOGLOBIN 12.3 g/dL (12.0-16.0); LYMPHOCYTES # (AUTO) 0.9 X10^3/uL (1.3-2.9); LYMPHOCYTES % (AUTO) 8.1 % (21.0-51.0); MEAN CORPUSCULAR HGB CONC 34.7 g/dL (33.0-35.0); MEAN CORPUSCULAR VOLUME 89.5 fL (80.0-100.0); MEAN PLATELET VOLUME 8.3 fL (7.4-11.0); MONOCYTES # (AUTO) 1.5 x10^3/uL (0.3-0.8); MONOCYTES % (AUTO) 13.1 % (0.0-13.0); NEUTROPHILS # (AUTO) 8.9 x10^3/uL (2.2-4.8); PLATELET COUNT 293 X10^3/uL (150.0-450.0); RED BLOOD COUNT 3.97 X10^6/uL (3.5-5.4); RED CELL DISTRIBUTION WIDTH 13.4 % (11.6-16.5); WHITE BLOOD COUNT 11.4 X10^3/uL (3.6-10.0)
[2019-08-01 19:10] LABS: BLOOD UREA NITROGEN 10 mg/dL (7-18); CALCIUM 8.9 mg/dL (8.5-10.1); CHLORIDE 102 mmol/L (98-107); COR NA(FOR HYPERGLY) 142 mmol/L (136-145); CREATININE 0.82 mg/dL (0.55-1.02); SODIUM 141 mmol/L (136-145); TROPONIN I < 0.02 ng/mL (0-1.5); eGFR NON BLACK RACES > 60 (>60)
[2019-08-01 19:15] LABS: ALANINE AMINOTRANSFERASE 27 Units/L (12-78); ALBUMIN 2.6 g/dL (3.4-5.0); ALKALINE PHOSPHATASE 59 Units/L (46-116); ASPARTATE AMINO TRANSFERASE 23 Units/L (15-37); CKMB % 2.4 % (<4); CREATINE KINASE 41 Units/L (26-192); CREATINE KINASE MB < 1.0 ng/mL (0-4.0); MAGNESIUM 1.6 mg/dL (1.7-2.9)
[2019-08-01] MEDS ORDERED: ROCEPHIN VIAL 1 GRAM 1 G in NS 100 ML IV + SPIKE MINIBAG* 100 ML IV ONE (20:10)
[2019-08-01] MEDS ORDERED: MORPHINE SULFATE INJ 4 MG IVP ONE (20:12)
[2019-08-01] MEDS ORDERED: ZOFRAN INJ 4 MG VIAL IVP ONE (20:12)
[2019-08-01] MEDS ORDERED: ROCEPHIN VIAL 1 GRAM ONE (20:14)
[2019-08-01] MEDS ORDERED: NS + KCL 20 MEQ/L 1,000 ML IV ONE (20:14)
[2019-08-01] MEDS ORDERED: NS 100 ML IV + SPIKE MINIBAG* 100 ML IV ONE (20:15)
[2019-08-01] MEDS: NS + KCL 20 MEQ/L 1,000 ML IV SCH ×2 (20:24→22:07)
[2019-08-01] MEDS ORDERED: MORPHINE SULFATE INJ 4 MG ONE (20:28)
[2019-08-01] MEDS ORDERED: ZOFRAN INJ 4 MG VIAL ONE (20:28)
[2019-08-01] MEDS ORDERED: TUSSIONEX PENNKINETIC SUSP PO PRN (21:47)
[2019-08-01] MEDS: MAGNESIUM SULFATE 1 GRAM/100 mL PREMIX 1 GM/100 ML BAG IV PRN (22:41)
[2019-08-01] MEDS: MORPHINE SULFATE INJ 2 MG INJ IVP PRN (22:42)
[2019-08-01 23:14] VITALS: BMI 21.3
[2019-08-01 23:57] LABS: CKMB % 2.9 % (<4); CREATINE KINASE 35 Units/L (26-192); CREATINE KINASE MB < 1.0 ng/mL (0-4.0); TROPONIN I < 0.02 ng/mL (0-1.5)
[2019-08-02] MEDS: MAGNESIUM SULFATE 1 GRAM/100 mL PREMIX 1 GM/100 ML BAG IV PRN (00:30)
[2019-08-02] MEDS: NS + KCL 20 MEQ/L 1,000 ML IV SCH ×6 (03:27→21:16)
[2019-08-02] MEDS: MORPHINE SULFATE INJ 2 MG INJ IVP PRN ×3 (03:28→18:05)
[2019-08-02 06:18] LABS: BASOPHILS % (AUTO) 0.4 % (0.2-1.0); EOSINOPHILS # (AUTO) 0.1 x10^3/uL (0.0-0.2); EOSINOPHILS % (AUTO) 0.6 % (0.9-2.9); HEMATOCRIT 28.9 % (36.0-47.0); HEMOGLOBIN 10.6 g/dL (12.0-16.0); LYMPHOCYTES % (AUTO) 11.2 % (21.0-51.0); MEAN CORPUSCULAR HEMOGLOBIN 36.2 pg (27.0-34.0); MEAN CORPUSCULAR HGB CONC 36.8 g/dL (33.0-35.0); MEAN CORPUSCULAR VOLUME 98.4 fL (80.0-100.0); MONOCYTES # (AUTO) 1.3 x10^3/uL (0.3-0.8); MONOCYTES % (AUTO) 14.1 % (0.0-13.0); NEUTROPHILS # (AUTO) 6.7 x10^3/uL (2.2-4.8); NEUTROPHILS % (AUTO) 73.7 % (42.0-75.0); PLATELET COUNT 230 X10^3/uL (150.0-450.0); RED BLOOD COUNT 2.93 X10^6/uL (3.5-5.4); RED CELL DISTRIBUTION WIDTH 13.2 % (11.6-16.5); WHITE BLOOD COUNT 9.1 X10^3/uL (3.6-10.0)
[2019-08-02 06:21] LABS: ALANINE AMINOTRANSFERASE 23 Units/L (12-78); ALBUMIN 2.1 g/dL (3.4-5.0); ALKALINE PHOSPHATASE 52 Units/L (46-116); ASPARTATE AMINO TRANSFERASE 23 Units/L (15-37); BLOOD UREA NITROGEN 11 mg/dL (7-18); CALCIUM 8.3 mg/dL (8.5-10.1); CHLORIDE 105 mmol/L (98-107); CHOLESTEROL 124 mg/dL (0-200); CKMB % 2.4 % (<4); COR CA(FOR HYPOALB) 9.8 mg/dL (8.5-10.1); COR NA(FOR HYPERGLY) 142 mmol/L (136-145); CREATINE KINASE 42 Units/L (26-192); CREATINE KINASE MB < 1.0 ng/mL (0-4.0); CREATININE 0.69 mg/dL (0.55-1.02); HDL CHOLESTEROL 25 mg/dL (40-60); MAGNESIUM 2.1 mg/dL (1.7-2.9); SODIUM 141 mmol/L (136-145); TOTAL PROTEIN 6.8 g/dL (6.4-8.2); TRIGLYCERIDES 74 mg/dL (0-150); TROPONIN I < 0.02 ng/mL (0-1.5); eGFR NON BLACK RACES > 60 (>60)
[2019-08-02] MEDS: VSL#3 PO SCH (08:05)
[2019-08-02] MEDS: ROBITUSSIN DM PO SCH ×4 (08:05→20:00)
[2019-08-02] MEDS ORDERED: ZITHROMAX TAB 250 MG PO ONE (08:52)
[2019-08-02] MEDS: PULMICORT NEB TX 0.5 MG NEB SCH ×2 (09:11→20:40)
[2019-08-02] MEDS: PLAVIX PO SCH (09:42)
[2019-08-02] MEDS: LIPITOR TAB 40 MG PO SCH (09:42)
[2019-08-02] MEDS: MICRO K EXTEN CAP 10 MEQ PO SCH ×2 (09:42→20:00)
[2019-08-02] MEDS: COREG TAB 12.5 MG PO SCH ×2 (09:42→20:00)
[2019-08-02] MEDS: ASPIRIN EC 81 MG PO SCH (09:42)
--- NOTE | 2019-08-02 10:49 | DR.H&P ---
H&P History & Physical for Day of: H&P Date: 08/02/19 Chief Complaint Chief Complaint: chest pain, SOB Allergies Allergies Allergy/AdvReac Type Severity Reaction Status Date / Time No Known Drug Allergies Allergy Verified 08/01/19 18:01 History of Present Illness History of Present Illness: Ms. Mazariegos is a 58y/o female with a hx of CAD, HTN presented with chest pain and SOB. She states she started having right sided chest pain on Friday. She states the entire right side of her chest hurts when she coughs or takes a deep breath. She reports fever, no chills. Denies GI symptoms. Denies sick exposure. ED work-up: CXR: b/l pneumonia COVID (-) EKG: no acute ST changes Labs: trop x 3 (-), Mg 2.1 AB.55/33/55/28 Patient is currently on RA, no respiratory distress noted. Plan: continue Rocephin, add azithromycin, resume home medications, continue IVF at 100cc/hr, pain control, monitor AM labs. Continue duonebs, add pulmicort Past Medical History Past Medical History: Coronary Artery Disease and Hypertension Past Surgical History Surgical History: Angioplasty/Stents and Ortho Surgery Family History Family Medical History: Diabetes Mellitus, [place], Sudden Cardiac and Hypertension Social History Does patient currently use any type of tobacco product: No Have you used tobacco products in the last 12 months: No Type of Tobacco Use: None Does any household member use tobacco: No Alcohol Use: None Drug Use: None Medications Home Medications: No Known Drug Allergies Allergy (Verified 08/01/19 18:01) CONTINUE taking the following medications aspirin [Aspirin Low Dose] 81 mg PO DAILY 08/01/19 [History] atorvastatin 40 mg PO DAILY 08/01/19 [History] carvedilol 12.5 mg PO BID 08/01/19 [History] clopidogrel [Plavix] 75 mg PO DAILY 08/01/19 [History] gabapentin [Neurontin] 300 mg PO TID 08/01/19 [History] lisinopril-hydrochlorothiazide [Zestoretic] 1 tab PO DAILY 08/01/19 [History] potassium chloride 10 meq PO BID 08/01/19 [History] Labs Result Diagrams: 08/02/19 05:30 08/02/19 05:30 Labs: Laboratory WBC 9.1 X10^3/uL (3.6-10.0) 08/02/19 05:30 RBC 2.93 X10^6/uL (3.5-5.4) L 08/02/19 05:30 Hgb 10.6 g/dL (12.0-16.0) L 08/02/19 05:30 Hct 28.9 % (36.0-47.0) L 08/02/19 05:30 MCV 98.4 fL (80.0-100.0) 08/02/19 05:30 MCH 36.2 pg (27.0-34.0) H 08/02/19 05:30 MCHC 36.8 g/dL (33.0-35.0) H 08/02/19 05:30 RDW 13.2 % (11.6-16.5) 08/02/19 05:30 Plt Count 230 X10^3/uL (150.0-450.0) 08/02/19 05:30 MPV 9.0 fL (7.4-11.0) 08/02/19 05:30 Neut % (Auto) 73.7 % (42.0-75.0) 08/02/19 05:30 Lymph % (Auto) 11.2 % (21.0-51.0) L 08/02/19 05:30 [place] % (Auto) 14.1 % (0.0-13.0) H 08/02/19 05:30 Eos % (Auto) 0.6 % (0.9-2.9) L 08/02/19 05:30 Baso % (Auto) 0.4 % (0.2-1.0) 08/02/19 05:30 Neut # (Auto) 6.7 x10^3/uL (2.2-4.8) H 08/02/19 05:30 Lymph # (Auto) 1.0 X10^3/uL (1.3-2.9) L 08/02/19 05:30 [place] # (Auto) 1.3 x10^3/uL (0.3-0.8) H 08/02/19 05:30 Eos # (Auto) 0.1 x10^3/uL (0.0-0.2) 08/02/19 05:30 Baso # (Auto) 0.0 X10^3/uL (0.0-0.1) 08/02/19 05:30 Absolute Nucleated RBC 0.0 /100WBC 08/02/19 05:30 PT 15.1 SECONDS (11.8-14.3) 08/01/19 18:44 INR Target Range - 08/01/19 18:44 INR 1.23 (0.8-1.3) 08/01/19 18:44 APTT 29.3 SECONDS (22.9-36.5) 08/01/19 18:44 PTT Comment - 08/01/19 18:44 Sample Site Lr 08/01/19 18:17 ABG pH 7.550 (7.35-7.45) H 08/01/19 18:17 ABG pCO2 33.0 mmHg (35.0-45.0) L 08/01/19 18:17 ABG pO2 55.0 mmHg (80.0-100.0) L 08/01/19 18:17 ABG HCO3 28.9 mmol/L (22-26) H 08/01/19 18:17 ABG O2 Saturation 92.0 % (90-100) 08/01/19 18:17 ABG Base Excess 6.5 mmol/L (-2.0-2.0) H 08/01/19 18:17 Jason Test Pos 08/01/19 18:17 A-a Gradient 103.0 mmHg 08/01/19 18:17 FiO2 28.0 08/01/19 18:17 Blood Gas Comments Shanice well ej 08/01/19 18:17 Sodium 141 mmol/L (136-145) 08/02/19 05:30 Corrected Sodium 142 mmol/L (136-145) 08/02/19 05:30 Potassium 3.6 mmol/L (3.5-5.1) 08/02/19 05:30 Chloride 105 mmol/L (98-107) 08/02/19 05:30 Carbon Dioxide 29.0 mmol/L (21-32) 08/02/19 05:30 BUN 11 mg/dL (7-18) 08/02/19 05:30 Creatinine 0.69 mg/dL (0.55-1.02) 08/02/19 05:30 Est GFR (MDRD) Af Amer > 60 (>60) 08/02/19 05:30 Est GFR (MDRD) Non-Af > 60 (>60) 08/02/19 05:30 Glucose 132 mg/dL (65-99) H 08/02/19 05:30 Calcium 8.3 mg/dL (8.5-10.1) L 08/02/19 05:30 Corrected Calcium 9.8 mg/dL (8.5-10.1) 08/02/19 05:30 Magnesium 2.1 mg/dL (1.7-2.9) 08/02/19 05:30 Total Bilirubin 2.90 mg/dL (0.2-1.0) H 08/02/19 05:30 AST 23 Units/L (15-37) 08/02/19 05:30 ALT 23 Units/L (12-78) 08/02/19 05:30 Alkaline Phosphatase 52 Units/L (46-116) 08/02/19 05:30 Creatine Kinase 42 Units/L (26-192) 08/02/19 05:30 CK-MB (CK-2) < 1.0 ng/mL (0-4.0) 08/02/19 05:30 CK/CKMB % Calc 2.4 % (<4) 08/02/19 05:30 Troponin I < 0.02 ng/mL (0-1.5) 08/02/19 05:30 Total Protein 6.8 g/dL (6.4-8.2) 08/02/19 05:30 Albumin 2.1 g/dL (3.4-5.0) L 08/02/19 05:30 Globulin 4.7 g/dL (2.5-4.5) H 08/02/19 05:30 Albumin/Globulin Ratio 0.4 Ratio (1.1-2.1) L 08/02/19 05:30 Triglycerides 74 mg/dL (0-150) 08/02/19 05:30 Cholesterol 124 mg/dL (0-200) 08/02/19 05:30 LDL Cholesterol, Calc 84 mg/dL (0-100) 08/02/19 05:30 HDL Cholesterol 25 mg/dL (40-60) L 08/02/19 05:30 Cholesterol/HDL Ratio 5.0 (0.0-5.0) 08/02/19 05:30 RSV Nasal Swab Negative (NEGATIVE) 08/01/19 18:21 Influenza Type A Ag Negative-presumptive (NEGATIVE) 08/01/19 18:21 Influenza Type B Ag Negative-presumptive (NEGATIVE) 08/01/19 18:21 SARS-CoV-2 (PCR) Negative (NEGATIVE) 08/01/19 20:30 S. pyogenes (TEM-PCR) Not detected (NOT DETECT) 08/01/19 18:21 Review of Systems Constitutional: Fever, Chills and Weakness Eyes: No Symptoms Reported ENT: No Symptoms Reported Respiratory: Cough, Shortness of Breath and Pleuritic Pain Cardiovascular: Chest Pain Gastrointestinal: No Symptoms Reported Genitourinary: No Symptoms Reported Musculoskeletal: No Symptoms Reported Skin: No Symptoms Reported Neurological: No Symptoms Reported Physical Exam Vital Signs: Temperature 98.8 F Pulse Rate [Apical] 81 Pulse Rate 68 Respiratory Rate 18 Blood Pressure [Left Arm] 105/67 Blood Pressure [Left Calf] 136/73 Blood Pressure [Right Arm] 161/78 Blood Pressure 120/89 O2 Sat by Pulse Oximetry 93 Oriented: Normal Eyes: Normal Ear: Normal Nose: Normal Respiratory: Diminished Throughout and Rhonchi Throughout Cardiovascular: Normal Auscultation: Bowel Sounds: Normal Palpation: Normal Tenderness: Normal Skin: Normal Musculoskeletal: Normal Psychiatric: Normal Mood Description: Calm Affect: Normal Speech Pattern: Clear and Appropriate Assessment/Plan (1) Bilateral pneumonia: Qualifiers: Pneumonia type: due to unspecified organism Lung location: unspecified part of lung Qualified Code(s): J18.9 - Pneumonia, unspecified organism Status: Acute (2) Acute respiratory failure with hypoxia: Status: Acute (3) Chest pain, rule out acute myocardial infarction: Status: Acute (4) Hypokalemia: Status: Acute (5) Essential hypertension: Status: Acute Review H&P Reviewed: Yes Patient was examined?: Yes
[2019-08-02] MEDS: NEURONTIN CAP 300 MG PO SCH ×2 (14:36→20:59)
[2019-08-02] MEDS: ROCEPHIN VIAL 1 GRAM 1 G in NS 100 ML IV + SPIKE MINIBAG* 100 ML IV SCH (19:46)
[2019-08-02] MEDS: PROVENTIL NEB TX 0.083% 2.5MG/ 3ML NEB PRN (20:40)
[2019-08-03] MEDS: MORPHINE SULFATE INJ 2 MG INJ IVP PRN ×2 (00:11→05:43)
[2019-08-03] MEDS: NEURONTIN CAP 300 MG PO SCH ×3 (05:36→21:05)
[2019-08-03 06:22] LABS: BASOPHILS # (AUTO) 0.1 X10^3/uL (0.0-0.1); BASOPHILS % (AUTO) 0.6 % (0.2-1.0); EOSINOPHILS # (AUTO) 0.1 x10^3/uL (0.0-0.2); EOSINOPHILS % (AUTO) 1.2 % (0.9-2.9); HEMOGLOBIN 10.1 g/dL (12.0-16.0); LYMPHOCYTES # (AUTO) 1.1 X10^3/uL (1.3-2.9); LYMPHOCYTES % (AUTO) 9.3 % (21.0-51.0); MEAN CORPUSCULAR HEMOGLOBIN 29.8 pg (27.0-34.0); MEAN CORPUSCULAR HGB CONC 33.8 g/dL (33.0-35.0); MEAN PLATELET VOLUME 8.6 fL (7.4-11.0); MONOCYTES # (AUTO) 1.1 x10^3/uL (0.3-0.8); MONOCYTES % (AUTO) 9.1 % (0.0-13.0); NEUTROPHILS # (AUTO) 9.6 x10^3/uL (2.2-4.8); NEUTROPHILS % (AUTO) 79.8 % (42.0-75.0); PLATELET COUNT 231 X10^3/uL (150.0-450.0); RED BLOOD COUNT 3.41 X10^6/uL (3.5-5.4); RED CELL DISTRIBUTION WIDTH 13.8 % (11.6-16.5)
[2019-08-03 06:31] LABS: BLOOD UREA NITROGEN 12 mg/dL (7-18); CALCIUM 8.3 mg/dL (8.5-10.1); CARBON DIOXIDE 26.5 mmol/L (21-32); CHLORIDE 106 mmol/L (98-107); COR NA(FOR HYPERGLY) 140 mmol/L (136-145); CREATININE 0.72 mg/dL (0.55-1.02); SODIUM 140 mmol/L (136-145); eGFR NON BLACK RACES > 60 (>60)
[2019-08-03] MEDS: LIDODERM 5% PATCH TD SCH (08:58)
[2019-08-03] MEDS: ROBITUSSIN DM PO SCH ×4 (08:59→20:08)
[2019-08-03] MEDS: LIPITOR TAB 40 MG PO SCH (08:59)
[2019-08-03] MEDS: VSL#3 PO SCH (08:59)
[2019-08-03] MEDS: MILK OF MAGNESIA PO SCH (08:59)
[2019-08-03] MEDS: ZITHROMAX TAB 250 MG PO SCH (09:00)
[2019-08-03] MEDS: PLAVIX PO SCH (09:00)
[2019-08-03] MEDS: COREG TAB 12.5 MG PO SCH ×2 (09:01→20:09)
[2019-08-03] MEDS: MICRO K EXTEN CAP 10 MEQ PO SCH ×2 (09:01→20:09)
[2019-08-03] MEDS: PREDNISONE TAB 20 MG PO SCH (09:01)
[2019-08-03] MEDS: ASPIRIN EC 81 MG PO SCH (09:01)
--- NOTE | 2019-08-03 09:07 | PCM.PROG ---
Progress Note Progress Note for Day of Date of Exam: 08/03/19 Subjective Subjective: Patient seen at bedside, temp of 100.4 overnight. She states she still feels short of breath with ambulation and it's painful on the right side when she takes a deep breath. She is currently on 2L NC. She denies N/V/D or abdominal pain. Labs: elevated ferritin, iron 38, folate 2.1 , normal renal function, K-4, WBC 12 Plan: repeat CXR, continue IV antibiotics, follow cultures, RT and PT, switch to [place] prn, add prednisone. Past Medical Family Social History Past Med/Fam/Surg Hx: No changes since H&P Allergies: Allergies No Known Drug Allergies Allergy (Verified 08/01/19 18:01) Review of Systems ROS: No change since H&P Vital Signs and I&O's Vital Signs: Temperature 98.3 F Pulse Rate [Apical] 72 Pulse Rate 80 Respiratory Rate 32 Blood Pressure [Left Arm] 113/78 Blood Pressure [Left Calf] 136/73 Blood Pressure [Right Arm] 161/78 Blood Pressure 120/89 O2 Sat by Pulse Oximetry 95 Intake and Output: Intake & Output 07/31/19 08/01/19 08/02/19 08/03/19 23:59 23:59 23:59 23:59 Intake Total 0 / 0 4700 / 4700 550 / 550 Balance 0 / 0 4700 / 4700 550 / 550 Physical Exam Oriented: Normal Eyes: Normal Ear: Normal Nose: Normal Respiratory: Diminished Cardiovascular: Normal Auscultation: Bowel Sounds: Normal Tenderness: Normal Skin: Normal Musculoskeletal: Right and Tender Psychiatric: Normal Mood Description: Calm Affect: Normal Speech Pattern: Clear and Appropriate Laboratory and Diagnostics Result Diagrams: 08/03/19 05:54 08/03/19 05:54 Labs: Laboratory WBC 12.0 X10^3/uL (3.6-10.0) H 08/03/19 05:54 RBC 3.41 X10^6/uL (3.5-5.4) L 08/03/19 05:54 Hgb 10.1 g/dL (12.0-16.0) L 08/03/19 05:54 Hct 30.0 % (36.0-47.0) L 08/03/19 05:54 MCV 88.0 fL (80.0-100.0) 05/26/20 05:54 MCH 29.8 pg (27.0-34.0) 08/03/19 05:54 MCHC 33.8 g/dL (33.0-35.0) 08/03/19 05:54 RDW 13.8 % (11.6-16.5) 08/03/19 05:54 Plt Count 231 X10^3/uL (150.0-450.0) 08/03/19 05:54 MPV 8.6 fL (7.4-11.0) 08/03/19 05:54 Neut % (Auto) 79.8 % (42.0-75.0) H 08/03/19 05:54 Lymph % (Auto) 9.3 % (21.0-51.0) L 08/03/19 05:54 [place] % (Auto) 9.1 % (0.0-13.0) 08/03/19 05:54 Eos % (Auto) 1.2 % (0.9-2.9) 08/03/19 05:54 Baso % (Auto) 0.6 % (0.2-1.0) 08/03/19 05:54 Neut # (Auto) 9.6 x10^3/uL (2.2-4.8) H 08/03/19 05:54 Lymph # (Auto) 1.1 X10^3/uL (1.3-2.9) L 08/03/19 05:54 [place] # (Auto) 1.1 x10^3/uL (0.3-0.8) H 08/03/19 05:54 Eos # (Auto) 0.1 x10^3/uL (0.0-0.2) 08/03/19 05:54 Baso # (Auto) 0.1 X10^3/uL (0.0-0.1) 08/03/19 05:54 Absolute Nucleated RBC 0.0 /100WBC 08/03/19 05:54 PT 15.1 SECONDS (11.8-14.3) 08/01/19 18:44 INR Target Range - 08/01/19 18:44 INR 1.23 (0.8-1.3) 08/01/19 18:44 APTT 29.3 SECONDS (22.9-36.5) 08/01/19 18:44 PTT Comment - 08/01/19 18:44 Sample Site Lr 08/01/19 18:17 ABG pH 7.550 (7.35-7.45) H 08/01/19 18:17 ABG pCO2 33.0 mmHg (35.0-45.0) L 08/01/19 18:17 ABG pO2 55.0 mmHg (80.0-100.0) L 08/01/19 18:17 ABG HCO3 28.9 mmol/L (22-26) H 08/01/19 18:17 ABG O2 Saturation 92.0 % (90-100) 08/01/19 18:17 ABG Base Excess 6.5 mmol/L (-2.0-2.0) H 08/01/19 18:17 Jason Test Pos 08/01/19 18:17 A-a Gradient 103.0 mmHg 08/01/19 18:17 FiO2 28.0 08/01/19 18:17 Blood Gas Comments Shanice well ej 08/01/19 18:17 Sodium 140 mmol/L (136-145) 08/03/19 05:54 Corrected Sodium 140 mmol/L (136-145) 08/03/19 05:54 Potassium 4.0 mmol/L (3.5-5.1) 08/03/19 05:54 Chloride 106 mmol/L (98-107) 08/03/19 05:54 Carbon Dioxide 26.5 mmol/L (21-32) 08/03/19 05:54 BUN 12 mg/dL (7-18) 08/03/19 05:54 Creatinine 0.72 mg/dL (0.55-1.02) 08/03/19 05:54 Est GFR (MDRD) Af Amer > 60 (>60) 08/03/19 05:54 Est GFR (MDRD) Non-Af > 60 (>60) 08/03/19 05:54 Glucose 113 mg/dL (65-99) H 08/03/19 05:54 Calcium 8.3 mg/dL (8.5-10.1) L 08/03/19 05:54 Corrected Calcium 9.8 mg/dL (8.5-10.1) 08/02/19 05:30 Magnesium 2.1 mg/dL (1.7-2.9) 08/02/19 05:30 Iron 38 ug/dL (50-175) L 08/02/19 05:30 Transferrin 108 mg/dL (202-364) L 08/02/19 05:30 Ferritin 1731 ng/mL (8-252) H 08/02/19 05:30 Total Bilirubin 2.90 mg/dL (0.2-1.0) H 08/02/19 05:30 AST 23 Units/L (15-37) 08/02/19 05:30 ALT 23 Units/L (12-78) 08/02/19 05:30 Alkaline Phosphatase 52 Units/L (46-116) 08/02/19 05:30 Creatine Kinase 42 Units/L (26-192) 08/02/19 05:30 CK-MB (CK-2) < 1.0 ng/mL (0-4.0) 08/02/19 05:30 CK/CKMB % Calc 2.4 % (<4) 08/02/19 05:30 Troponin I < 0.02 ng/mL (0-1.5) 08/02/19 05:30 Total Protein 6.8 g/dL (6.4-8.2) 08/02/19 05:30 Albumin 2.1 g/dL (3.4-5.0) L 08/02/19 05:30 Globulin 4.7 g/dL (2.5-4.5) H 08/02/19 05:30 Albumin/Globulin Ratio 0.4 Ratio (1.1-2.1) L 08/02/19 05:30 Triglycerides 74 mg/dL (0-150) 08/02/19 05:30 Cholesterol 124 mg/dL (0-200) 08/02/19 05:30 LDL Cholesterol, Calc 84 mg/dL (0-100) 08/02/19 05:30 HDL Cholesterol 25 mg/dL (40-60) L 08/02/19 05:30 Cholesterol/HDL Ratio 5.0 (0.0-5.0) 08/02/19 05:30 Vitamin B12 443 pg/mL (193-986) 08/02/19 05:30 Folate 2.1 ng/mL (>8.6) L 08/02/19 05:30 RSV Nasal Swab Negative (NEGATIVE) 08/01/19 18:21 Influenza Type A Ag Negative-presumptive (NEGATIVE) 08/01/19 18:21 Influenza Type B Ag Negative-presumptive (NEGATIVE) 08/01/19 18:21 SARS-CoV-2 (PCR) Negative (NEGATIVE) 08/01/19 20:30 S. pyogenes (TEM-PCR) Not detected (NOT DETECT) 08/01/19 18:21 Plan (1) Bilateral pneumonia: Status: Acute Qualifiers: Lung location: unspecified part of lung Pneumonia type: due to unspecified organism Qualified Code(s): J18.9 - Pneumonia, unspecified organism (2) Acute respiratory failure with hypoxia: Status: Acute (3) Chest pain, rule out acute myocardial infarction: Status: Acute (4) Hypokalemia: Status: Acute (5) Essential hypertension: Status: Acute
--- NOTE | 2019-08-03 09:11 | RAD ---
HISTORYFOLLOW UP PNASTUDYPortable AP chestCOMPARISONMay 2019FINDINGSThere is limited inspiration with mild bilateral basilar subsegmental opacities. Left worse than right. The heart size is normal and the aorta is tortuous. There are moderate osteophytes about the right AC joint.IMPRESSIONLimited inspiration with bibasilar subsegmental atelectasis and/or pneumonitis, similar to prior examElectronically signed by: JOANN ISAACS (August 03, 2019 09:07:36)
[2019-08-03] MEDS: PULMICORT NEB TX 0.5 MG NEB SCH ×2 (09:30→21:10)
[2019-08-03] MEDS: PROVENTIL NEB TX 0.083% 2.5MG/ 3ML NEB PRN ×2 (09:30→21:10)
[2019-08-03] MEDS: NS + KCL 20 MEQ/L 1,000 ML IV SCH ×2 (12:08→19:23)
[2019-08-03] MEDS: FOLIC ACID TAB 1 MG PO SCH (12:54)
[2019-08-03] MEDS: ROCEPHIN VIAL 1 GRAM 1 G in NS 100 ML IV + SPIKE MINIBAG* 100 ML IV SCH (20:08)
[2019-08-03] MEDS: NORCO 5/325 MG TAB PO PRN (20:09)
[2019-08-03] MEDS: COLACE CAP 100 MG PO SCH (20:09)
[2019-08-04] MEDS: NS + KCL 20 MEQ/L 1,000 ML IV SCH (03:16)
[2019-08-04] MEDS: NEURONTIN CAP 300 MG PO SCH ×3 (05:48→21:30)
[2019-08-04] MEDS: NORCO 5/325 MG TAB PO PRN ×2 (06:17→18:01)
[2019-08-04 06:33] LABS: BASOPHILS % (AUTO) 0.4 % (0.2-1.0); EOSINOPHILS # (AUTO) 0.1 x10^3/uL (0.0-0.2); EOSINOPHILS % (AUTO) 0.6 % (0.9-2.9); HEMOGLOBIN 9.2 g/dL (12.0-16.0); LYMPHOCYTES # (AUTO) 1.5 X10^3/uL (1.3-2.9); LYMPHOCYTES % (AUTO) 16.1 % (21.0-51.0); MEAN CORPUSCULAR HEMOGLOBIN 30.6 pg (27.0-34.0); MEAN CORPUSCULAR HGB CONC 34.1 g/dL (33.0-35.0); MEAN CORPUSCULAR VOLUME 89.7 fL (80.0-100.0); MEAN PLATELET VOLUME 8.3 fL (7.4-11.0); MONOCYTES # (AUTO) 1.1 x10^3/uL (0.3-0.8); MONOCYTES % (AUTO) 11.5 % (0.0-13.0); NEUTROPHILS # (AUTO) 6.8 x10^3/uL (2.2-4.8); NEUTROPHILS % (AUTO) 71.4 % (42.0-75.0); PLATELET COUNT 224 X10^3/uL (150.0-450.0); RED BLOOD COUNT 3.01 X10^6/uL (3.5-5.4); RED CELL DISTRIBUTION WIDTH 13.9 % (11.6-16.5); WHITE BLOOD COUNT 9.5 X10^3/uL (3.6-10.0)
[2019-08-04 06:37] LABS: BLOOD UREA NITROGEN 11 mg/dL (7-18); CALCIUM 8.3 mg/dL (8.5-10.1); CARBON DIOXIDE 26.7 mmol/L (21-32); CHLORIDE 107 mmol/L (98-107); CREATININE 0.54 mg/dL (0.55-1.02); SODIUM 140 mmol/L (136-145); eGFR NON BLACK RACES > 60 (>60)
[2019-08-04] MEDS: ROBITUSSIN DM PO SCH ×4 (08:39→20:53)
[2019-08-04] MEDS: ASPIRIN EC 81 MG PO SCH (08:39)
[2019-08-04] MEDS: ZITHROMAX TAB 250 MG PO SCH (08:40)
[2019-08-04] MEDS: PREDNISONE TAB 20 MG PO SCH (08:40)
[2019-08-04] MEDS: VSL#3 PO SCH (08:40)
[2019-08-04] MEDS: MICRO K EXTEN CAP 10 MEQ PO SCH (08:42)
[2019-08-04] MEDS: PLAVIX PO SCH (08:42)
[2019-08-04] MEDS: MILK OF MAGNESIA PO SCH (08:42)
[2019-08-04] MEDS: LIPITOR TAB 40 MG PO SCH (08:42)
[2019-08-04] MEDS: LIDODERM 5% PATCH TD SCH (08:43)
[2019-08-04] MEDS: FOLIC ACID TAB 1 MG PO SCH (08:43)
[2019-08-04] MEDS: COREG TAB 12.5 MG PO SCH ×2 (08:43→20:52)
[2019-08-04] MEDS ORDERED: ZESTRIL TAB 20 MG ONE (08:45)
[2019-08-04] MEDS: ZESTRIL TAB 20 MG PO SCH (08:47)
[2019-08-04] MEDS: HYDROCHLOROTHIAZIDE 12.5 MG CAP PO SCH (08:48)
[2019-08-04] MEDS ORDERED: LISINOPRIL HYDROCHLOROTHIAZIDE PO SCH (09:00)
[2019-08-04] MEDS: PULMICORT NEB TX 0.5 MG NEB SCH ×2 (09:21→20:30)
--- NOTE | 2019-08-04 10:52 | PCM.PROG ---
Progress Note Progress Note for Day of Date of Exam: 08/04/19 Subjective Subjective: Patient seen at bedside, reports feeling slightly better today. She states her SOB with ambulation to the bathroom is better. She is still on 3L oxygen. No fever overnight. She reports dry cough. Labs: WBC trending down, Hgb 9.2 Blood Cx negative CXR yesterday: bibasilar atelectasis and pneumonitis Plan: will ask RT to ambulate with patient to see her sats, continue Rocpehin/azithromycin and prednisone. DC IVF. If patient continues to require O2 then will get a CT to eval further. Continue IS, duonebs and Pulmicort. Past Medical Family Social History Past Med/Fam/Surg Hx: No changes since H&P Allergies: Allergies No Known Drug Allergies Allergy (Verified 08/01/19 18:01) Review of Systems ROS: No change since H&P Vital Signs and I&O's Vital Signs: Temperature 98.4 F Pulse Rate [Apical] 73 Pulse Rate 76 Respiratory Rate 18 Blood Pressure [Left Arm] 132/63 Blood Pressure [Left Calf] 136/73 Blood Pressure [Right Arm] 161/78 Blood Pressure 120/89 O2 Sat by Pulse Oximetry 95 Intake and Output: Intake & Output 08/01/19 08/02/19 08/03/19 08/04/19 23:59 23:59 23:59 23:59 Intake Total 0 / 0 4700 / 4700 3597 / 3597 550 / 550 Balance 0 / 0 4700 / 4700 3597 / 3597 550 / 550 Physical Exam Oriented: Normal Eyes: Normal Ear: Normal Nose: Normal Respiratory: Diminished Cardiovascular: Normal Auscultation: Bowel Sounds: Normal Tenderness: Normal Skin: Normal Musculoskeletal: Right and Tender Psychiatric: Normal Mood Description: Calm Affect: Normal Speech Pattern: Clear and Appropriate Laboratory and Diagnostics Result Diagrams: 08/04/19 05:47 08/04/19 05:47 Labs: 08/01/19 20:24 Blood Blood Culture - Preliminary 08/01/19 18:44 Blood Blood Culture - Preliminary Laboratory WBC 9.5 X10^3/uL (3.6-10.0) 08/04/19 05:47 RBC 3.01 X10^6/uL (3.5-5.4) L 08/04/19 05:47 Hgb 9.2 g/dL (12.0-16.0) L 08/04/19 05:47 Hct 27.0 % (36.0-47.0) L 08/04/19 05:47 MCV 89.7 fL (80.0-100.0) 08/04/19 05:47 MCH 30.6 pg (27.0-34.0) 08/04/19 05:47 MCHC 34.1 g/dL (33.0-35.0) 08/04/19 05:47 RDW 13.9 % (11.6-16.5) 08/04/19 05:47 Plt Count 224 X10^3/uL (150.0-450.0) 08/04/19 05:47 MPV 8.3 fL (7.4-11.0) 08/04/19 05:47 Neut % (Auto) 71.4 % (42.0-75.0) 08/04/19 05:47 Lymph % (Auto) 16.1 % (21.0-51.0) L 08/04/19 05:47 [place] % (Auto) 11.5 % (0.0-13.0) 08/04/19 05:47 Eos % (Auto) 0.6 % (0.9-2.9) L 08/04/19 05:47 Baso % (Auto) 0.4 % (0.2-1.0) 08/04/19 05:47 Neut # (Auto) 6.8 x10^3/uL (2.2-4.8) H 08/04/19 05:47 Lymph # (Auto) 1.5 X10^3/uL (1.3-2.9) 08/04/19 05:47 [place] # (Auto) 1.1 x10^3/uL (0.3-0.8) H 08/04/19 05:47 Eos # (Auto) 0.1 x10^3/uL (0.0-0.2) 08/04/19 05:47 Baso # (Auto) 0.0 X10^3/uL (0.0-0.1) 08/04/19 05:47 Absolute Nucleated RBC 0.0 /100WBC 08/04/19 05:47 PT 15.1 SECONDS (11.8-14.3) 08/01/19 18:44 INR Target Range - 08/01/19 18:44 INR 1.23 (0.8-1.3) 08/01/19 18:44 APTT 29.3 SECONDS (22.9-36.5) 08/01/19 18:44 PTT Comment - 08/01/19 18:44 Sample Site Lr 08/01/19 18:17 ABG pH 7.550 (7.35-7.45) H 08/01/19 18:17 ABG pCO2 33.0 mmHg (35.0-45.0) L 08/01/19 18:17 ABG pO2 55.0 mmHg (80.0-100.0) L 08/01/19 18:17 ABG HCO3 28.9 mmol/L (22-26) H 08/01/19 18:17 ABG O2 Saturation 92.0 % (90-100) 08/01/19 18:17 ABG Base Excess 6.5 mmol/L (-2.0-2.0) H 08/01/19 18:17 Jason Test Pos 08/01/19 18:17 A-a Gradient 103.0 mmHg 08/01/19 18:17 FiO2 28.0 08/01/19 18:17 Blood Gas Comments Shanice well ej 08/01/19 18:17 Sodium 140 mmol/L (136-145) 08/04/19 05:47 Corrected Sodium TNP 08/04/19 05:47 Potassium 4.2 mmol/L (3.5-5.1) 08/04/19 05:47 Chloride 107 mmol/L (98-107) 08/04/19 05:47 Carbon Dioxide 26.7 mmol/L (21-32) 08/04/19 05:47 BUN 11 mg/dL (7-18) 08/04/19 05:47 Creatinine 0.54 mg/dL (0.55-1.02) L 08/04/19 05:47 Est GFR (MDRD) Af Amer > 60 (>60) 08/04/19 05:47 Est GFR (MDRD) Non-Af > 60 (>60) 08/04/19 05:47 Glucose 102 mg/dL (65-99) H 08/04/19 05:47 Calcium 8.3 mg/dL (8.5-10.1) L 08/04/19 05:47 Corrected Calcium 9.8 mg/dL (8.5-10.1) 08/02/19 05:30 Magnesium 2.1 mg/dL (1.7-2.9) 08/02/19 05:30 Iron 38 ug/dL (50-175) L 08/02/19 05:30 Transferrin 108 mg/dL (202-364) L 08/02/19 05:30 Ferritin 1731 ng/mL (8-252) H 08/02/19 05:30 Total Bilirubin 2.90 mg/dL (0.2-1.0) H 08/02/19 05:30 AST 23 Units/L (15-37) 08/02/19 05:30 ALT 23 Units/L (12-78) 08/02/19 05:30 Alkaline Phosphatase 52 Units/L (46-116) 08/02/19 05:30 Creatine Kinase 42 Units/L (26-192) 08/02/19 05:30 CK-MB (CK-2) < 1.0 ng/mL (0-4.0) 08/02/19 05:30 CK/CKMB % Calc 2.4 % (<4) 08/02/19 05:30 Troponin I < 0.02 ng/mL (0-1.5) 08/02/19 05:30 Total Protein 6.8 g/dL (6.4-8.2) 08/02/19 05:30 Albumin 2.1 g/dL (3.4-5.0) L 08/02/19 05:30 Globulin 4.7 g/dL (2.5-4.5) H 08/02/19 05:30 Albumin/Globulin Ratio 0.4 Ratio (1.1-2.1) L 08/02/19 05:30 Triglycerides 74 mg/dL (0-150) 08/02/19 05:30 Cholesterol 124 mg/dL (0-200) 08/02/19 05:30 LDL Cholesterol, Calc 84 mg/dL (0-100) 08/02/19 05:30 HDL Cholesterol 25 mg/dL (40-60) L 08/02/19 05:30 Cholesterol/HDL Ratio 5.0 (0.0-5.0) 08/02/19 05:30 Vitamin B12 443 pg/mL (193-986) 08/02/19 05:30 Folate 2.1 ng/mL (>8.6) L 08/02/19 05:30 RSV Nasal Swab Negative (NEGATIVE) 08/01/19 18:21 Influenza Type A Ag Negative-presumptive (NEGATIVE) 08/01/19 18:21 Influenza Type B Ag Negative-presumptive (NEGATIVE) 08/01/19 18:21 SARS-CoV-2 (PCR) Negative (NEGATIVE) 08/01/19 20:30 S. pyogenes (TEM-PCR) Not detected (NOT DETECT) 08/01/19 18:21 Plan (1) Bilateral pneumonia: Status: Acute Qualifiers: Lung location: unspecified part of lung Pneumonia type: due to unspecified organism Qualified Code(s): J18.9 - Pneumonia, unspecified organism (2) Acute respiratory failure with hypoxia: Status: Acute (3) Chest pain, rule out acute myocardial infarction: Status: Inactive (4) Hypokalemia: Status: Inactive (5) Essential hypertension: Status: Chronic
--- NOTE | 2019-08-04 15:18 | CT ---
HISTORY:Right-sided chest pain, chills, hypoxiaStudy: CTA chestComparison:NoneTechnique: Multiple axial images of the chest were obtained after the administration of IV contrast. 3D reconstructions were performed utilizing radial maximum intensity projection imaging. Dose reduction techniques including Automated Exposure Control (AEC) and adjustment of mA and kV were utilized.Findings:Contrast opacification of the pulmonary arteries is adequate to the level of the segmental branches. The exam is positive for multiple right upper and lower lobar and segmental branch pulmonary emboli. Heart size is normal with calcified plaque noted in the coronary arteries. No pericardial effusion. The aorta appears normal in course and caliber. There are paraseptal emphysematous changes present with scattered atelectasis at the lung bases, worse in the bilateral lower lobes. Airways are patient. No pneumothorax or pleural effusion identified.The soft tissues and osseous structures appear intact . The visualized portions of the upper abdomen are grossly unremarkable. Nonspecific heterogeneous enhancement of the spleen may be secondary to bolus timing.IMPRESSION:Multiple acute pulmonary emboli in the right upper and lower lobes.Low lung volumes with bibasilar atelectasis, worse on the right.Electronically signed by: HAYLEE HOSKINS (August 04, 2019 15:17:00)
[2019-08-04] MEDS ORDERED: HEPARIN SODIUM IN D5W 25,000 UNITS/500 ML BAG IV PRN (15:21)
[2019-08-04] MEDS ORDERED: HEPARIN SODIUM INJ 5000 UNITS IVP ONE (15:42)
[2019-08-04] MEDS ORDERED: HEPARIN SODIUM INJ 5000 UNITS ONE (15:46)
[2019-08-04] MEDS: PROVENTIL NEB TX 0.083% 2.5MG/ 3ML NEB PRN ×2 (17:31→20:30)
[2019-08-04 18:10] LABS: BILIRUBIN,URINE NEGATIVE (NEGATIVE); BLOOD/HEMOGLOBIN,URINE 2+ (NEGATIVE); GLUCOSE, URINE NEGATIVE (NEGATIVE); KETONES,URINE NEGATIVE (NEGATIVE); LEUKOCYTE ESTERASE ,URINE NEGATIVE (NEGATIVE); NITRITES,URINE NEGATIVE (NEGATIVE); PROTEIN,URINE 2+ (NEGATIVE); UROBILINOGEN,URINE NORMAL (NORMAL)
[2019-08-04 18:15] LABS: APPEARANCE,URINE CLEAR (CLEAR); COLOR,URINE YELLOW (YELLOW)
[2019-08-04 18:23] LABS: BACTERIA,URINE NEGATIVE /HPF (NEGATIVE); RBC,URINE 0-2 /HPF (0-3); SQUAMOUS EPITHELIAL CELL,UR RARE /HPF (NEGATIVE)
[2019-08-04] MEDS: ROCEPHIN VIAL 1 GRAM 1 G in NS 100 ML IV + SPIKE MINIBAG* 100 ML IV SCH (20:51)
[2019-08-04] MEDS: COLACE CAP 100 MG PO SCH (20:52)
[2019-08-05] MEDS ORDERED: ULTRAM PO PRN (03:23)
[2019-08-05] MEDS ORDERED: ULTRAM ONE (03:25)
[2019-08-05 06:30] LABS: BASOPHILS # (AUTO) 0.1 X10^3/uL (0.0-0.1); BASOPHILS % (AUTO) 0.6 % (0.2-1.0); EOSINOPHILS # (AUTO) 0.1 x10^3/uL (0.0-0.2); EOSINOPHILS % (AUTO) 0.7 % (0.9-2.9); HEMATOCRIT 27.9 % (36.0-47.0); HEMOGLOBIN 9.6 g/dL (12.0-16.0); LYMPHOCYTES # (AUTO) 2.1 X10^3/uL (1.3-2.9); LYMPHOCYTES % (AUTO) 19.6 % (21.0-51.0); MEAN CORPUSCULAR HEMOGLOBIN 29.8 pg (27.0-34.0); MEAN CORPUSCULAR HGB CONC 34.4 g/dL (33.0-35.0); MEAN CORPUSCULAR VOLUME 86.5 fL (80.0-100.0); MEAN PLATELET VOLUME 8.2 fL (7.4-11.0); MONOCYTES # (AUTO) 1.3 x10^3/uL (0.3-0.8); MONOCYTES % (AUTO) 11.5 % (0.0-13.0); NEUTROPHILS # (AUTO) 7.4 x10^3/uL (2.2-4.8); NEUTROPHILS % (AUTO) 67.6 % (42.0-75.0); PLATELET COUNT 285 X10^3/uL (150.0-450.0); RED BLOOD COUNT 3.23 X10^6/uL (3.5-5.4); RED CELL DISTRIBUTION WIDTH 13.5 % (11.6-16.5); WHITE BLOOD COUNT 10.9 X10^3/uL (3.6-10.0)
[2019-08-05 06:34] LABS: BLOOD UREA NITROGEN 7 mg/dL (7-18); CALCIUM 8.4 mg/dL (8.5-10.1); CARBON DIOXIDE 30.2 mmol/L (21-32); CHLORIDE 101 mmol/L (98-107); CREATININE 0.49 mg/dL (0.55-1.02); SODIUM 137 mmol/L (136-145); eGFR NON BLACK RACES > 60 (>60)
[2019-08-05] MEDS: NEURONTIN CAP 300 MG PO SCH ×3 (06:48→21:05)
[2019-08-05] MEDS ORDERED: KLOR-CON PO PRN (08:23)
[2019-08-05] MEDS ORDERED: MICRO K EXTEN CAP 10 MEQ PO PRN (08:23)
[2019-08-05] MEDS ORDERED: POTASSIUM CHLORIDE LIQ 20 MEQ UDC PO PRN (08:23)
[2019-08-05] MEDS ORDERED: K-DUR TAB 20 MEQ PO PRN (08:23)
--- NOTE | 2019-08-05 08:30 | PCM.PROG ---
Progress Note Progress Note for Day of Date of Exam: 08/05/19 Subjective Subjective: Patient seen at bedside, no events overnight. Patient reports she had some right sided pain last night so couldn't sleep much. She states her breathing is little better today, currently on 2 L NC. Yesterday evening, she was in distress with ambulation to the bathroom so stroud was placed. CTA showed multiple upper and lower lobe right sided pulmonary emboli. She is currently on heparin drip, denies any bleeding problems in the past. She reports dry cough. She denies N/V/D or abdominal pain. Labs: Hgb: 9.6, K:3.3 M.4 Plan: continue heparin drip as per protocol, replace K and Mag as per protocol, pain control, continue IV abx and prednisone. Early ambulation when tolerated, continue IS. Past Medical Family Social History Past Med/Fam/Surg Hx: No changes since H&P Allergies: Allergies No Known Drug Allergies Allergy (Verified 08/01/19 18:01) Review of Systems ROS: No change since H&P Vital Signs and I&O's Vital Signs: Temperature 98.2 F Pulse Rate [Apical] 54 Pulse Rate 58 Respiratory Rate 20 Blood Pressure [Left Arm] 162/72 Blood Pressure [Left Calf] 136/73 Blood Pressure [Right Arm] 161/78 Blood Pressure 120/89 O2 Sat by Pulse Oximetry 96 Intake and Output: Intake & Output 08/02/19 08/03/19 08/04/19 08/05/19 23:59 23:59 23:59 23:59 Intake Total 4700 / 4700 3597 / 3597 1350 / 1350 340 / 340 Output Total 300 / 300 700 / 700 Balance 4700 / 4700 3597 / 3597 1050 / 1050 -360 / -360 Physical Exam Oriented: Normal Eyes: Normal Ear: Normal Nose: Normal Respiratory: Diminished and OTHER (slightly improved air entry ) Cardiovascular: Normal Auscultation: Bowel Sounds: Normal Tenderness: Normal Skin: Normal Musculoskeletal: Right and Tender Psychiatric: Normal Mood Description: Calm Affect: Normal Speech Pattern: Clear and Appropriate Laboratory and Diagnostics Result Diagrams: 08/05/19 06:11 08/05/19 06:11 Labs: 08/01/19 20:24 Blood Blood Culture - Preliminary 08/01/19 18:44 Blood Blood Culture - Preliminary Laboratory WBC 10.9 X10^3/uL (3.6-10.0) H 08/05/19 06:11 RBC 3.23 X10^6/uL (3.5-5.4) L 08/05/19 06:11 Hgb 9.6 g/dL (12.0-16.0) L 08/05/19 06:11 Hct 27.9 % (36.0-47.0) L 08/05/19 06:11 MCV 86.5 fL (80.0-100.0) 08/05/19 06:11 MCH 29.8 pg (27.0-34.0) 08/05/19 06:11 MCHC 34.4 g/dL (33.0-35.0) 08/05/19 06:11 RDW 13.5 % (11.6-16.5) 08/05/19 06:11 Plt Count 285 X10^3/uL (150.0-450.0) 08/05/19 06:11 MPV 8.2 fL (7.4-11.0) 08/05/19 06:11 Neut % (Auto) 67.6 % (42.0-75.0) 08/05/19 06:11 Lymph % (Auto) 19.6 % (21.0-51.0) L 08/05/19 06:11 [place] % (Auto) 11.5 % (0.0-13.0) 08/05/19 06:11 Eos % (Auto) 0.7 % (0.9-2.9) L 08/05/19 06:11 Baso % (Auto) 0.6 % (0.2-1.0) 08/05/19 06:11 Neut # (Auto) 7.4 x10^3/uL (2.2-4.8) H 08/05/19 06:11 Lymph # (Auto) 2.1 X10^3/uL (1.3-2.9) 08/05/19 06:11 [place] # (Auto) 1.3 x10^3/uL (0.3-0.8) H 08/05/19 06:11 Eos # (Auto) 0.1 x10^3/uL (0.0-0.2) 08/05/19 06:11 Baso # (Auto) 0.1 X10^3/uL (0.0-0.1) 08/05/19 06:11 Absolute Nucleated RBC 0.0 /100WBC 08/05/19 06:11 PT 15.1 SECONDS (11.8-14.3) 08/01/19 18:44 INR Target Range - 08/01/19 18:44 INR 1.23 (0.8-1.3) 08/01/19 18:44 APTT 36.4 SECONDS (22.9-36.5) 08/05/19 06:11 PTT Comment - 08/05/19 06:11 Sample Site Lr 08/01/19 18:17 ABG pH 7.550 (7.35-7.45) H 08/01/19 18:17 ABG pCO2 33.0 mmHg (35.0-45.0) L 08/01/19 18:17 ABG pO2 55.0 mmHg (80.0-100.0) L 08/01/19 18:17 ABG HCO3 28.9 mmol/L (22-26) H 08/01/19 18:17 ABG O2 Saturation 92.0 % (90-100) 08/01/19 18:17 ABG Base Excess 6.5 mmol/L (-2.0-2.0) H 08/01/19 18:17 Jason Test Pos 08/01/19 18:17 A-a Gradient 103.0 mmHg 08/01/19 18:17 FiO2 28.0 08/01/19 18:17 Blood Gas Comments Shanice well ej 08/01/19 18:17 Sodium 137 mmol/L (136-145) 08/05/19 06:11 Corrected Sodium TNP 08/05/19 06:11 Potassium 3.3 mmol/L (3.5-5.1) L 08/05/19 06:11 Chloride 101 mmol/L (98-107) 08/05/19 06:11 Carbon Dioxide 30.2 mmol/L (21-32) 08/05/19 06:11 BUN 7 mg/dL (7-18) 08/05/19 06:11 Creatinine 0.49 mg/dL (0.55-1.02) L 08/05/19 06:11 Est GFR (MDRD) Af Amer > 60 (>60) 08/05/19 06:11 Est GFR (MDRD) Non-Af > 60 (>60) 08/05/19 06:11 Glucose 100 mg/dL (65-99) H 08/05/19 06:11 Calcium 8.4 mg/dL (8.5-10.1) L 08/05/19 06:11 Corrected Calcium 9.8 mg/dL (8.5-10.1) 08/02/19 05:30 Magnesium 1.4 mg/dL (1.7-2.9) L 08/05/19 06:11 Iron 38 ug/dL (50-175) L 08/02/19 05:30 Transferrin 108 mg/dL (202-364) L 08/02/19 05:30 Ferritin 1731 ng/mL (8-252) H 08/02/19 05:30 Total Bilirubin 2.90 mg/dL (0.2-1.0) H 08/02/19 05:30 AST 23 Units/L (15-37) 08/02/19 05:30 ALT 23 Units/L (12-78) 08/02/19 05:30 Alkaline Phosphatase 52 Units/L (46-116) 08/02/19 05:30 Creatine Kinase 42 Units/L (26-192) 08/02/19 05:30 CK-MB (CK-2) < 1.0 ng/mL (0-4.0) 08/02/19 05:30 CK/CKMB % Calc 2.4 % (<4) 08/02/19 05:30 Troponin I < 0.02 ng/mL (0-1.5) 08/02/19 05:30 Total Protein 6.8 g/dL (6.4-8.2) 08/02/19 05:30 Albumin 2.1 g/dL (3.4-5.0) L 08/02/19 05:30 Globulin 4.7 g/dL (2.5-4.5) H 08/02/19 05:30 Albumin/Globulin Ratio 0.4 Ratio (1.1-2.1) L 08/02/19 05:30 Triglycerides 74 mg/dL (0-150) 08/02/19 05:30 Cholesterol 124 mg/dL (0-200) 08/02/19 05:30 LDL Cholesterol, Calc 84 mg/dL (0-100) 08/02/19 05:30 HDL Cholesterol 25 mg/dL (40-60) L 08/02/19 05:30 Cholesterol/HDL Ratio 5.0 (0.0-5.0) 08/02/19 05:30 Vitamin B12 443 pg/mL (193-986) 08/02/19 05:30 Folate 2.1 ng/mL (>8.6) L 08/02/19 05:30 Specimen Type Catherized urine 08/04/19 18:03 Urine Color Yellow (YELLOW) 08/04/19 18:03 Urine Appearance Clear (CLEAR) 08/04/19 18:03 Urine pH 7.0 (5.0 - 8.0) 08/04/19 18:03 Ur Specific [place] 1.005 (1.000-1.030) 08/04/19 18:03 Urine Protein 2+ (NEGATIVE) 08/04/19 18:03 Urine Glucose (UA) Negative (NEGATIVE) 08/04/19 18:03 Urine Ketones Negative (NEGATIVE) 08/04/19 18:03 Urine Occult Blood 2+ (NEGATIVE) 08/04/19 18:03 Urine Nitrite Negative (NEGATIVE) 08/04/19 18:03 Urine Bilirubin Negative (NEGATIVE) 08/04/19 18:03 Urine Urobilinogen Normal (NORMAL) 08/04/19 18:03 Ur Leukocyte Esterase Negative (NEGATIVE) 08/04/19 18:03 Urine RBC 0-2 /HPF (0-3) 08/04/19 18:03 Urine WBC None seen /HPF (0-5) 08/04/19 18:03 Ur Squamous Epith Cells Rare /HPF (NEGATIVE) 08/04/19 18:03 Urine Bacteria Negative /HPF (NEGATIVE) 08/04/19 18:03 Ur Culture Indicated? No/not indicated 08/04/19 18:03 RSV Nasal Swab Negative (NEGATIVE) 08/01/19 18:21 Influenza Type A Ag Negative-presumptive (NEGATIVE) 08/01/19 18:21 Influenza Type B Ag Negative-presumptive (NEGATIVE) 08/01/19 18:21 SARS-CoV-2 (PCR) Negative (NEGATIVE) 08/01/19 20:30 S. pyogenes (TEM-PCR) Not detected (NOT DETECT) 08/01/19 18:21 Plan (1) Pulmonary embolism: Status: Acute Qualifiers: Pulmonary embolism type: multiple subsegmental (without acute cor pulmonale) Qualified Code(s): I26.94 - Multiple subsegmental pulmonary emboli without acute cor pulmonale (2) Acute respiratory failure with hypoxia: Status: Acute (3) Bilateral pneumonia: Status: Acute Qualifiers: Lung location: unspecified part of lung Pneumonia type: due to unspecified organism Qualified Code(s): J18.9 - Pneumonia, unspecified organism (4) Hypokalemia: Status: Acute (5) Chest pain: Status: Acute Qualifiers: Chest pain type: intercostal pain Qualified Code(s): R07.82 - Intercostal pain (6) Hypomagnesemia: Status: Acute (7) Essential hypertension: Status: Chronic
[2019-08-05] MEDS: PULMICORT NEB TX 0.5 MG NEB SCH ×2 (09:13→21:04)
[2019-08-05] MEDS ORDERED: ZESTRIL TAB 20 MG ONE (09:21)
[2019-08-05] MEDS: MILK OF MAGNESIA PO SCH (09:24)
[2019-08-05] MEDS: VSL#3 PO SCH (09:25)
[2019-08-05] MEDS: ASPIRIN EC 81 MG PO SCH (09:25)
[2019-08-05] MEDS: PREDNISONE TAB 20 MG PO SCH (09:25)
[2019-08-05] MEDS: ROBITUSSIN DM PO SCH ×4 (09:25→21:05)
[2019-08-05] MEDS: ZITHROMAX TAB 250 MG PO SCH (09:25)
[2019-08-05] MEDS: LIPITOR TAB 40 MG PO SCH (09:26)
[2019-08-05] MEDS: PLAVIX PO SCH (09:27)
[2019-08-05] MEDS: COREG TAB 12.5 MG PO SCH ×3 (09:27→21:08)
[2019-08-05] MEDS: FOLIC ACID TAB 1 MG PO SCH (09:27)
[2019-08-05] MEDS: HYDROCHLOROTHIAZIDE 12.5 MG CAP PO SCH (09:27)
[2019-08-05] MEDS: LIDODERM 5% PATCH TD SCH (09:27)
[2019-08-05] MEDS: ZESTRIL TAB 20 MG PO SCH (09:32)
[2019-08-05] MEDS ORDERED: NS 500 ML IV 500 ML IV ONE (10:31)
[2019-08-05] MEDS: MAGNESIUM SULFATE 1 GRAM/100 mL PREMIX 1 GM/100 ML BAG IV PRN ×4 (11:17→17:12)
[2019-08-05] MEDS: NORCO 5/325 MG TAB PO PRN (17:45)
[2019-08-05] MEDS: ELIQUIS PO SCH (21:04)
[2019-08-05] MEDS: PROVENTIL NEB TX 0.083% 2.5MG/ 3ML NEB PRN (21:04)
[2019-08-05] MEDS: COLACE CAP 100 MG PO SCH (21:05)
[2019-08-05] MEDS: ROCEPHIN VIAL 1 GRAM 1 G in NS 100 ML IV + SPIKE MINIBAG* 100 ML IV SCH (22:48)
[2019-08-06] MEDS: NORCO 5/325 MG TAB PO PRN ×2 (04:05→10:39)
[2019-08-06 05:27] LABS: BASOPHILS # (AUTO) 0.1 X10^3/uL (0.0-0.1); BASOPHILS % (AUTO) 0.5 % (0.2-1.0); EOSINOPHILS % (AUTO) 0.3 % (0.9-2.9); HEMATOCRIT 29.7 % (36.0-47.0); LYMPHOCYTES # (AUTO) 1.7 X10^3/uL (1.3-2.9); LYMPHOCYTES % (AUTO) 17.3 % (21.0-51.0); MEAN CORPUSCULAR HEMOGLOBIN 28.3 pg (27.0-34.0); MEAN CORPUSCULAR HGB CONC 33.6 g/dL (33.0-35.0); MEAN CORPUSCULAR VOLUME 84.2 fL (80.0-100.0); MEAN PLATELET VOLUME 8.2 fL (7.4-11.0); MONOCYTES # (AUTO) 1.1 x10^3/uL (0.3-0.8); MONOCYTES % (AUTO) 11.2 % (0.0-13.0); NEUTROPHILS # (AUTO) 6.9 x10^3/uL (2.2-4.8); NEUTROPHILS % (AUTO) 70.7 % (42.0-75.0); PLATELET COUNT 306 X10^3/uL (150.0-450.0); RED BLOOD COUNT 3.53 X10^6/uL (3.5-5.4); RED CELL DISTRIBUTION WIDTH 13.4 % (11.6-16.5); WHITE BLOOD COUNT 9.7 X10^3/uL (3.6-10.0)
[2019-08-06] MEDS: NEURONTIN CAP 300 MG PO SCH (05:33)
[2019-08-06 05:39] LABS: BLOOD UREA NITROGEN 10 mg/dL (7-18); CALCIUM 8.5 mg/dL (8.5-10.1); CHLORIDE 100 mmol/L (98-107); CREATININE 0.64 mg/dL (0.55-1.02); MAGNESIUM 2.3 mg/dL (1.7-2.9); SODIUM 136 mmol/L (136-145); eGFR NON BLACK RACES > 60 (>60)
[2019-08-06] MEDS: PROVENTIL NEB TX 0.083% 2.5MG/ 3ML NEB PRN (08:56)
[2019-08-06] MEDS: PULMICORT NEB TX 0.5 MG NEB SCH (08:56)
[2019-08-06] MEDS ORDERED: ZESTRIL TAB 20 MG ONE (08:58)
[2019-08-06] MEDS ORDERED: COREG TAB 12.5 MG PO SCH (09:00)
[2019-08-06] MEDS: LIPITOR TAB 40 MG PO SCH (09:13)
[2019-08-06] MEDS: ZITHROMAX TAB 250 MG PO SCH (09:13)
[2019-08-06] MEDS: VSL#3 PO SCH (09:13)
[2019-08-06] MEDS: MILK OF MAGNESIA PO SCH (09:13)
[2019-08-06] MEDS: ZESTRIL TAB 20 MG PO SCH (09:14)
[2019-08-06] MEDS: PLAVIX PO SCH (09:14)
[2019-08-06] MEDS: ELIQUIS PO SCH (09:14)
[2019-08-06] MEDS: FOLIC ACID TAB 1 MG PO SCH (09:14)
[2019-08-06] MEDS: LIDODERM 5% PATCH TD SCH (09:15)
[2019-08-06] MEDS: PREDNISONE TAB 20 MG PO SCH (09:15)
[2019-08-06] MEDS: HYDROCHLOROTHIAZIDE 12.5 MG CAP PO SCH (09:15)
[2019-08-06] MEDS: ROBITUSSIN DM PO SCH (09:18)
[2019-08-06] MEDS: ASPIRIN EC 81 MG PO SCH (09:18)
--- NOTE | 2019-08-06 11:46 | W.DIS.FURT ---
Summary of Discharge Admission Diagnosis Patient Problems (Updated 08/05/19 @ 09:03 by Kacie Moise) Hypomagnesemia (Acute) E83.42 Pulmonary embolism (Acute) I26.99 Acute respiratory failure with hypoxia (Acute) J96.01 Bilateral pneumonia (Acute) J18.9 Pneumonia (Acute) J18.9 Chest pain (Acute) R07.9 Hypokalemia (Acute) E87.6 Hypoxia (Acute) R09.02 Vital Signs: Vital Signs (72 hours) 08/03/19 12:00 08/03/19 15:38 08/03/19 20:00 Temperature 98.5 F 98.7 F 98.4 F Pulse Rate Pulse Rate [Apical] 75 73 74 Respiratory Rate 25 H 25 H 24 Blood Pressure Blood Pressure [Left Arm] 123/79 140/87 150/75 O2 Sat by Pulse Oximetry 90 L 94 L 94 L 08/03/19 20:09 08/03/19 21:09 08/03/19 21:10 Temperature Pulse Rate 75 Pulse Rate [Apical] Respiratory Rate 24 22 Blood Pressure Blood Pressure [Left Arm] O2 Sat by Pulse Oximetry 95 08/04/19 00:00 08/04/19 04:00 08/04/19 06:17 Temperature 98.3 F 98.4 F Pulse Rate Pulse Rate [Apical] 63 63 Respiratory Rate 20 20 24 Blood Pressure Blood Pressure [Left Arm] 115/65 142/85 O2 Sat by Pulse Oximetry 94 L 94 L 08/04/19 07:17 08/04/19 08:00 08/04/19 09:21 Temperature 98.4 F Pulse Rate 76 Pulse Rate [Apical] 73 Respiratory Rate 18 18 Blood Pressure Blood Pressure [Left Arm] 132/63 O2 Sat by Pulse Oximetry 96 95 08/04/19 12:00 08/04/19 16:00 08/04/19 17:00 Temperature 98.1 F 99.3 F Pulse Rate Pulse Rate [Apical] 67 72 77 Respiratory Rate 18 20 18 Blood Pressure Blood Pressure [Left Arm] 122/76 140/82 158/86 O2 Sat by Pulse Oximetry 91 L 91 L 96 08/04/19 17:31 08/04/19 18:00 08/04/19 18:01 Temperature Pulse Rate 88 Pulse Rate [Apical] 67 Respiratory Rate 18 18 Blood Pressure Blood Pressure [Left Arm] 165/77 O2 Sat by Pulse Oximetry 96 95 08/04/19 19:00 08/04/19 19:01 08/04/19 20:00 Temperature 98.5 F Pulse Rate Pulse Rate [Apical] 57 L 61 Respiratory Rate 18 19 20 Blood Pressure Blood Pressure [Left Arm] 153/75 146/68 O2 Sat by Pulse Oximetry 96 94 L 08/04/19 20:30 08/04/19 21:00 08/05/19 00:00 Temperature 98.5 F Pulse Rate 58 L Pulse Rate [Apical] 55 L 53 L Respiratory Rate 18 18 Blood Pressure Blood Pressure [Left Arm] 142/67 145/70 O2 Sat by Pulse Oximetry 97 97 97 08/05/19 01:00 08/05/19 02:00 08/05/19 03:00 Temperature Pulse Rate Pulse Rate [Apical] 53 L 50 L 56 L Respiratory Rate 20 20 16 Blood Pressure Blood Pressure [Left Arm] 153/72 156/70 165/77 O2 Sat by Pulse Oximetry 97 97 97 08/05/19 03:39 08/05/19 04:00 08/05/19 04:39 Temperature 98.2 F Pulse Rate Pulse Rate [Apical] 57 L Respiratory Rate 20 16 18 Blood Pressure Blood Pressure [Left Arm] 171/82 O2 Sat by Pulse Oximetry 96 08/05/19 05:00 08/05/19 06:00 08/05/19 07:00 Temperature Pulse Rate Pulse Rate [Apical] 56 L 54 L 55 L Respiratory Rate 16 20 18 Blood Pressure Blood Pressure [Left Arm] 149/70 162/72 149/76 O2 Sat by Pulse Oximetry 96 96 95 08/05/19 08:00 08/05/19 09:00 08/05/19 09:13 Temperature 98.4 F 98.4 F Pulse Rate 77 Pulse Rate [Apical] 61 64 Respiratory Rate 20 18 Blood Pressure Blood Pressure [Left Arm] 160/81 106/54 O2 Sat by Pulse Oximetry 95 96 95 08/05/19 10:00 08/05/19 11:00 08/05/19 12:57 Temperature 97.6 F Pulse Rate Pulse Rate [Apical] 74 71 71 Respiratory Rate 20 20 18 Blood Pressure Blood Pressure [Left Arm] 111/63 113/72 123/75 O2 Sat by Pulse Oximetry 93 L 93 L 92 L 08/05/19 14:00 08/05/19 15:00 08/05/19 16:00 Temperature 98.9 F Pulse Rate Pulse Rate [Apical] 67 68 65 Respiratory Rate 18 18 18 Blood Pressure Blood Pressure [Left Arm] 114/68 119/68 110/67 O2 Sat by Pulse Oximetry 94 L 93 L 90 L 08/05/19 17:00 08/05/19 17:45 08/05/19 18:00 Temperature 99.0 F 98.8 F Pulse Rate Pulse Rate [Apical] 63 65 Respiratory Rate 20 18 20 Blood Pressure Blood Pressure [Left Arm] 113/69 121/71 O2 Sat by Pulse Oximetry 94 L 65 L 08/05/19 18:45 08/05/19 19:00 08/05/19 20:00 Temperature 98.1 F 98.2 F Pulse Rate Pulse Rate [Apical] 71 74 Respiratory Rate 18 20 20 Blood Pressure Blood Pressure [Left Arm] 116/64 104/60 O2 Sat by Pulse Oximetry 95 93 L 08/05/19 21:00 08/05/19 21:05 08/06/19 00:00 Temperature 97.9 F 98.3 F Pulse Rate 67 Pulse Rate [Apical] 70 63 Respiratory Rate 21 20 Blood Pressure Blood Pressure [Left Arm] 95/53 98/65 O2 Sat by Pulse Oximetry 91 L 97 93 L 08/06/19 01:00 08/06/19 02:00 08/06/19 04:00 Temperature 98.2 F Pulse Rate Pulse Rate [Apical] 55 L 55 L 51 L Respiratory Rate 20 20 20 Blood Pressure Blood Pressure [Left Arm] 109/62 111/71 122/74 O2 Sat by Pulse Oximetry 97 97 98 08/06/19 04:05 08/06/19 05:00 08/06/19 05:05 Temperature Pulse Rate Pulse Rate [Apical] 52 L Respiratory Rate 20 20 20 Blood Pressure Blood Pressure [Left Arm] 133/77 O2 Sat by Pulse Oximetry 98 08/06/19 06:00 08/06/19 07:00 08/06/19 08:00 Temperature 97.9 F Pulse Rate Pulse Rate [Apical] 52 L 56 L 64 Respiratory Rate 20 20 20 Blood Pressure Blood Pressure [Left Arm] 138/72 125/64 120/72 O2 Sat by Pulse Oximetry 97 96 92 L 08/06/19 08:56 08/06/19 09:00 08/06/19 10:00 Temperature Pulse Rate 75 75 Pulse Rate [Apical] 64 66 Respiratory Rate 20 20 Blood Pressure 120/89 Blood Pressure [Left Arm] 117/71 132/72 O2 Sat by Pulse Oximetry 95 92 L 94 L 08/06/19 10:39 08/06/19 11:00 Temperature Pulse Rate Pulse Rate [Apical] 66 Respiratory Rate 20 20 Blood Pressure Blood Pressure [Left Arm] 111/64 O2 Sat by Pulse Oximetry 20 L Labs: Laboratory Last Values WBC 9.7 X10^3/uL (3.6-10.0) 08/06/19 04:11 RBC 3.53 X10^6/uL (3.5-5.4) 08/06/19 04:11 Hgb 10.0 g/dL (12.0-16.0) L 08/06/19 04:11 Hct 29.7 % (36.0-47.0) L 08/06/19 04:11 MCV 84.2 fL (80.0-100.0) 08/06/19 04:11 MCH 28.3 pg (27.0-34.0) 08/06/19 04:11 MCHC 33.6 g/dL (33.0-35.0) 08/06/19 04:11 RDW 13.4 % (11.6-16.5) 08/06/19 04:11 Plt Count 306 X10^3/uL (150.0-450.0) 08/06/19 04:11 MPV 8.2 fL (7.4-11.0) 08/06/19 04:11 Neut % (Auto) 70.7 % (42.0-75.0) 08/06/19 04:11 Lymph % (Auto) 17.3 % (21.0-51.0) L 08/06/19 04:11 [place] % (Auto) 11.2 % (0.0-13.0) 08/06/19 04:11 Eos % (Auto) 0.3 % (0.9-2.9) L 08/06/19 04:11 Baso % (Auto) 0.5 % (0.2-1.0) 08/06/19 04:11 Neut # (Auto) 6.9 x10^3/uL (2.2-4.8) H 08/06/19 04:11 Lymph # (Auto) 1.7 X10^3/uL (1.3-2.9) 08/06/19 04:11 [place] # (Auto) 1.1 x10^3/uL (0.3-0.8) H 08/06/19 04:11 Eos # (Auto) 0.0 x10^3/uL (0.0-0.2) 08/06/19 04:11 Baso # (Auto) 0.1 X10^3/uL (0.0-0.1) 08/06/19 04:11 Absolute Nucleated RBC 0.0 /100WBC 08/06/19 04:11 PT 15.1 SECONDS (11.8-14.3) 08/01/19 18:44 INR Target Range - 08/01/19 18:44 INR 1.23 (0.8-1.3) 08/01/19 18:44 APTT 43.4 SECONDS (22.9-36.5) H 08/05/19 19:15 PTT Comment - 08/05/19 19:15 Sample Site Lr 08/01/19 18:17 ABG pH 7.550 (7.35-7.45) H 08/01/19 18:17 ABG pCO2 33.0 mmHg (35.0-45.0) L 08/01/19 18:17 ABG pO2 55.0 mmHg (80.0-100.0) L 08/01/19 18:17 ABG HCO3 28.9 mmol/L (22-26) H 08/01/19 18:17 ABG O2 Saturation 92.0 % (90-100) 08/01/19 18:17 ABG Base Excess 6.5 mmol/L (-2.0-2.0) H 08/01/19 18:17 Jason Test Pos 08/01/19 18:17 A-a Gradient 103.0 mmHg 08/01/19 18:17 FiO2 28.0 08/01/19 18:17 Blood Gas Comments Shanice well ej 08/01/19 18:17 Sodium 136 mmol/L (136-145) 08/06/19 04:11 Corrected Sodium TNP 08/06/19 04:11 Potassium 3.8 mmol/L (3.5-5.1) 08/06/19 04:11 Chloride 100 mmol/L (98-107) 08/06/19 04:11 Carbon Dioxide 33.0 mmol/L (21-32) H 08/06/19 04:11 BUN 10 mg/dL (7-18) 08/06/19 04:11 Creatinine 0.64 mg/dL (0.55-1.02) 08/06/19 04:11 Est GFR (MDRD) Af Amer > 60 (>60) 08/06/19 04:11 Est GFR (MDRD) Non-Af > 60 (>60) 08/06/19 04:11 Glucose 109 mg/dL (65-99) H 08/06/19 04:11 Calcium 8.5 mg/dL (8.5-10.1) 08/06/19 04:11 Corrected Calcium 9.8 mg/dL (8.5-10.1) 08/02/19 05:30 Magnesium 2.3 mg/dL (1.7-2.9) 08/06/19 04:11 Iron 38 ug/dL (50-175) L 08/02/19 05:30 Transferrin 108 mg/dL (202-364) L 08/02/19 05:30 Ferritin 1731 ng/mL (8-252) H 08/02/19 05:30 Total Bilirubin 2.90 mg/dL (0.2-1.0) H 08/02/19 05:30 AST 23 Units/L (15-37) 08/02/19 05:30 ALT 23 Units/L (12-78) 08/02/19 05:30 Alkaline Phosphatase 52 Units/L (46-116) 08/02/19 05:30 Creatine Kinase 42 Units/L (26-192) 08/02/19 05:30 CK-MB (CK-2) < 1.0 ng/mL (0-4.0) 08/02/19 05:30 CK/CKMB % Calc 2.4 % (<4) 08/02/19 05:30 Troponin I < 0.02 ng/mL (0-1.5) 08/02/19 05:30 Total Protein 6.8 g/dL (6.4-8.2) 08/02/19 05:30 Albumin 2.1 g/dL (3.4-5.0) L 08/02/19 05:30 Globulin 4.7 g/dL (2.5-4.5) H 08/02/19 05:30 Albumin/Globulin Ratio 0.4 Ratio (1.1-2.1) L 08/02/19 05:30 Triglycerides 74 mg/dL (0-150) 08/02/19 05:30 Cholesterol 124 mg/dL (0-200) 08/02/19 05:30 LDL Cholesterol, Calc 84 mg/dL (0-100) 08/02/19 05:30 HDL Cholesterol 25 mg/dL (40-60) L 08/02/19 05:30 Cholesterol/HDL Ratio 5.0 (0.0-5.0) 08/02/19 05:30 Vitamin B12 443 pg/mL (193-986) 08/02/19 05: Folate 2.1 ng/mL (>8.6) L 08/02/19 05:30 Specimen Type Catherized urine 08/04/19 18:03 Urine Color Yellow (YELLOW) 08/04/19 18:03 Urine Appearance Clear (CLEAR) 08/04/19 18:03 Urine pH 7.0 (5.0 - 8.0) 08/04/19 18:03 Ur Specific [place] 1.005 (1.000-1.030) 08/04/19 18:03 Urine Protein 2+ (NEGATIVE) 08/04/19 18:03 Urine Glucose (UA) Negative (NEGATIVE) 08/04/19 18:03 Urine Ketones Negative (NEGATIVE) 08/04/19 18:03 Urine Occult Blood 2+ (NEGATIVE) 08/04/19 18: Urine Nitrite Negative (NEGATIVE) 08/04/19 18:03 Urine Bilirubin Negative (NEGATIVE) 08/04/19 18:03 Urine Urobilinogen Normal (NORMAL) 08/04/19 18:03 Ur Leukocyte Esterase Negative (NEGATIVE) 08/04/19 18:03 Urine RBC 0-2 /HPF (0-3) 08/04/19 18:03 Urine WBC None seen /HPF (0-5) 08/04/19 18:03 Ur Squamous Epith Cells Rare /HPF (NEGATIVE) 08/04/19 18:03 Urine Bacteria Negative /HPF (NEGATIVE) 08/04/19 18:03 Ur Culture Indicated? No/not indicated 08/04/19 18:03 RSV Nasal Swab Negative (NEGATIVE) 08/01/19 18:21 Influenza Type A Ag Negative-presumptive (NEGATIVE) 08/01/19 18:21 Influenza Type B Ag Negative-presumptive (NEGATIVE) 08/01/19 18:21 SARS-CoV-2 (PCR) Negative (NEGATIVE) 08/01/19 20:30 S. pyogenes (TEM-PCR) Not detected (NOT DETECT) 08/01/19 18:21 Reason For Visit: BILATERAL LOWER LOBE PNEUMONIA, HYPOXIA,CHEST PAIN Discharge Diagnosis All Active Problems (Updated 08/05/19 @ 09:03 by Kacie Moise) Hypomagnesemia (Acute) Pulmonary embolism (Acute) Acute respiratory failure with hypoxia (Acute) Bilateral pneumonia (Acute) Pneumonia (Acute) Chest pain (Acute) Hypokalemia (Acute) Hypoxia (Acute) Essential hypertension (Chronic) Chronic kidney disease (Chronic) Lumbosacral radiculopathy at L4 (Chronic) Degenerative disc disease at L5-S1 level (Chronic) Low back pain (Chronic) Sciatica (Chronic) Plan of Treatment: Continue with present treatment and follow up plan. Pt is to keep follow up appointment as instructed and take medications as ordered. Discharge Medications Discharge Medications: No Known Drug Allergies Allergy (Verified 08/01/19 18:01) CONTINUE taking the following medications aspirin [Aspirin Low Dose] 81 mg PO DAILY 08/01/19 [History] atorvastatin 40 mg PO DAILY 08/01/19 [History] carvedilol 12.5 mg PO BID 08/01/19 [History] clopidogrel [Plavix] 75 mg PO DAILY 08/01/19 [History] gabapentin [Neurontin] 300 mg PO TID 08/01/19 [History] lisinopril-hydrochlorothiazide [Zestoretic] 1 tab PO DAILY 08/01/19 [History] potassium chloride 10 meq PO BID 08/01/19 [History] New Prescriptions apixaban [Eliquis DVT-PE Treat 30D Start] See Rx Instructions .ROUTE .COMPLEX #74 ea 08/06/19 [Rx] azithromycin 250 mg PO DAILY 2 Days #2 tab 08/06/19 [Rx] carvedilol 6.25 mg PO BID 30 Days #30 tab 08/06/19 [Rx] folic acid 1 mg PO DAILY 30 Days #30 tab 08/06/19 [Rx] hydrocodone-acetaminophen 1 tab PO Q6H PRN 3 Days #12 tab MDD 4 tabs 08/06/19 [Rx] Discharge Disposition Assessment: Stable no acute distress noted at time of discharge.
[2019-08-06 12:43] VITALS: BP 122/69
== END 2019-08-06 13:45 | disposition home health service (06) | DRG 193 ==
LOC: ER 18:00 → MED/SURG 21:39
PROVIDERS: ADMIT Family Medicine; ATTEND Family Medicine
DX: I25.10 Atherosclerotic heart disease of native coronary artery without angina pectoris; E87.6 Hypokalemia; R50.9 Fever, unspecified; R07.82 Intercostal pain; N18.9 Chronic kidney disease, unspecified; J18.9 Pneumonia, unspecified organism; E78.5 Hyperlipidemia, unspecified; I12.9 Hypertensive chronic kidney disease with stage 1 through stage 4 chronic kidney disease, or unspecified chronic kidney disease; I26.94 Multiple subsegmental thrombotic pulmonary emboli without acute cor pulmonale; E83.42 Hypomagnesemia; J96.01 Acute respiratory failure with hypoxia
CPT/HCPCS: 36415; 36600; 71010; 71045; 71275; 80048; 80053; 80061; 81001; 82550; 82553; 82607; 82728; 82746; 82803; 83540; 83735; 84466; 84484; 85025; 85610; 85730; 87040; 87400; 87420; 87635; 87651; 87804; 93005; 94640; 94760; 96365; 96367; 96374; 96375; 97161; 97166; 99284; A4222; J0696; J1644; J2270; J2405; J3475; J7040; J7050; J7512; J7613; J7626